=== PATIENT | male | born 1970 | race Caucasian/White ===

== ENCOUNTER 2016-12-07 04:53 | Emergency (ER) | payer MEDICAID, MEDICARE ==
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
[2016-12-07] MEDS ORDERED: Dextrose 5%-0.9% NaCl 1,000 ML IV SCH (05:30)
[2016-12-07] MEDS ORDERED: LORazepam 2 MG/ML MDV IVPUSH ONE (05:42)
[2016-12-07] MEDS ORDERED: Ketorolac 30 MG/ML SDV IVPUSH SCH (05:45)
[2016-12-07] MEDS ORDERED: Sodium Chloride 0.9% 1,000 ML IV SCH (07:15)
[2016-12-07] MEDS ORDERED: Potassium Chloride 20 MEQ Tab.ER PO ONE (08:08)
[2016-12-07] MEDS ORDERED: Potassium Chloride 10 MEQ in Premix Bag 1 BAG IV SCH ×4 (08:15)
--- NOTE | 2016-12-07 11:30 | CR ---
Chest: Portable view of the chest was obtained. Comparison: Previous chest x-ray of 04/24/11. Heart size is normal. Mild tortuosity of the thoracic aorta is seen. Lungs are clear with no acute infiltrates. Bony structures are grossly intact. Impression: 1. Nothing acute is identified on portable chest x-ray. Diagnostic code #1
[2016-12-07 12:03] VITALS: BP 153/90
== END 2016-12-07 11:55 | disposition home or self-care (01) ==
LOC: JD.ED 04:53
DX: E83.42 Hypomagnesemia (principal); E87.6 Hypokalemia; R73.03 Prediabetes; R41.0 Disorientation, unspecified; Z88.5 Allergy status to narcotic agent; Z79.899 Other long term (current) drug therapy
CPT/HCPCS: 36415; 71010; 80053; 80306; 81001; 83036; 83735; 83930; 85025; 86140; 96361; 96365; 96366; 96367; 96375; 99285; A9270; J1885; J2060; J3475; J3480; J7040; J7042; 99284

== ENCOUNTER 2016-12-07 22:45 | Emergency (ER) | payer MEDICAID ==
[2016-12-07 23:04] VITALS: BP 160/107
--- NOTE | 2016-12-08 00:55 | EDM.PDOC ---
ED HPI GENERAL MEDICAL PROBLEM - General Chief Complaint: Behavioral/Psych Stated Complaint: HEAT STROKE Time Seen by Provider: 12/07/16 23:08 Source of Information: Reports: Patient, Family History Limitations: Reports: No Limitations - History of Present Illness INITIAL COMMENTS - FREE TEXT/NARRATIVE: The patient presents with confusion. His says he has not been acting right since yesterday. He came in by ambulance early in the morning of the . He was out all day in the heat at a concert at [employer] and it was 100 and he was cooking. He cleaned up after and he did not get home until 4am. He was seen here and his K was low and his WBC was elevated. The rest looked good. He was concerned that someone gave him some meds. He had a hard time sleeping today. He had some abdominal pain. His brought him back because he is a little confused. He had a large bowel movement while waiting to come back and he feels much better. Onset: Gradual Duration: Day(s): Location: Reports: Abdomen Quality: Reports: Ache Severity: Moderate Improves with: Reports: None Worsens with: Reports: None Context: Reports: Activity Associated Symptoms: Reports: Confusion. Denies: Chest Pain, Fever/Chills, Loss of Appetite, Nausea/Vomiting, Shortness of Breath - Related Data Allergies Allergy/AdvReac Type Severity Reaction Status Date / Time codeine Allergy Drowsiness Verified 12/07/16 05:06 Home Meds: Home Meds Hydrochlorothiazide 25 mg PO DAILY 04/06/15 [History] QUEtiapine [SEROquel] 250 mg PO DAILY 04/06/15 [History] Simvastatin [Zocor] 40 mg PO BEDTIME 07/07/16 [History] Past Medical History Cardiovascular History: Reports: High Cholesterol, Hypertension Neurological History: Reports: Headaches, Chronic Psychiatric History: Reports: Bipolar - Past Surgical History HEENT Surgical History: Reports: Eye Surgery GI Surgical History: Reports: Cholecystectomy Social & Family History - Family History Family Medical History: Noncontributory - Tobacco Use Smoking Status *Q: Never Smoker Second Hand Smoke Exposure: No - Caffeine Use Caffeine Use: Reports: Coffee, Soda - Recreational Drug Use Recreational Drug Use: No - Living Situation & Occupation Living situation: Reports: with Spouse Occupation: Employed ED ROS GENERAL - Review of Systems Review Of Systems: See Below Constitutional: Reports: No Symptoms HEENT: Reports: No Symptoms Respiratory: Reports: No Symptoms Cardiovascular: Reports: No Symptoms Endocrine: Reports: No Symptoms GI/Abdominal: Reports: Abdominal Pain : Reports: No Symptoms Musculoskeletal: Reports: No Symptoms Skin: Reports: No Symptoms ED EXAM, NEURO - Physical Exam Exam: See Below Exam Limited By: No Limitations General Appearance: Alert, No Apparent Distress Ears: Normal External Exam Nose: Normal Inspection Head Exam: Atraumatic, Normocephalic Neck: Normal Inspection Respiratory/Chest: No Respiratory Distress, Lungs Clear, Normal Breath Sounds Cardiovascular: Regular Rate, Rhythm, No Edema, No Murmur GI/Abdominal: Soft, Non-Tender, No Organomegaly Neurological: Alert, No Motor/Sensory Deficits, Oriented x 3 Course - Vital Signs Last Recorded V/S: Last Vital Signs Temp 98.9 F 12/07/16 23:00 Pulse 95 12/07/16 23:00 Resp 16 12/07/16 23:00 BP 160/107 H 12/07/16 23:00 Pulse Ox 97 12/07/16 23:00 - Orders/Labs/Meds Orders: Active Orders 24 hr Category Date Time Status Cardiac Monitoring [RC] . DIRECTED Care 12/07/16 23:24 Active Labs: Laboratory Tests 12/08/16 12/08/16 Range/Units 00:05 00:05 WBC 12.69 H (4.23-9.07) K/mm3 RBC 5.17 (4.63-6.08) M/mm3 Hgb 15.1 (13.7-17.5) gm/L Hct 44.6 (40.1-51.0) % MCV 86.3 (79.0-92.2) fl MCH 29.2 (25.7-32.2) pg MCHC 33.9 (32.2-35.5) g/dl RDW Std Deviation 43.7 (35.1-43.9) fL Plt Count 349 H (163-337) K/mm3 MPV 8.7 L (9.4-12.3) fl Neut % (Auto) 70.0 H (34.0-67.9) % Lymph % (Auto) 14.4 L (21.8-53.1) % [place] % (Auto) 13.9 H (5.3-12.2) % Eos % (Auto) 1.3 (0.8-7.0) Baso % (Auto) 0.2 (0.1-1.2) % Neut # (Auto) 8.89 H (1.78-5.38) K/mm3 Lymph # (Auto) 1.83 (1.32-3.57) K/mm3 [place] # (Auto) 1.77 H (0.30-0.82) K/mm3 Eos # (Auto) 0.16 (0.04-0.54) K/mm3 Baso # (Auto) 0.02 (0.01-0.08) K/mm3 Manual Slide Review Normal smear Sodium 141 (136-145) mEq/L Potassium 3.4 L (3.5-5.1) mEq/L Chloride 104 (98-107) mEq/L Carbon Dioxide 31 (21-32) mEq/L Anion Gap 9.4 (5-15) BUN 13 (7-18) mg/dL Creatinine 1.1 (0.7-1.3) mg/dL Est Cr Clr Drug Dosing TNP Estimated GFR (MDRD) > 60 (>60) mL/min BUN/Creatinine Ratio 11.8 L (14-18) Glucose 154 H (74-106) mg/dL Calcium 9.0 (8.5-10.1) mg/dL Magnesium 2.1 (1.8-2.4) mg/dl Total Bilirubin 0.5 (0.2-1.0) mg/dL AST 41 H (15-37) U/L ALT 46 (16-63) U/L Alkaline Phosphatase 114 (46-116) U/L Total Protein 8.3 H (6.4-8.2) g/dl Albumin 3.8 (3.4-5.0) g/dl Globulin 4.5 gm/dL Albumin/Globulin Ratio 0.8 L (1-2) - Re-Assessments/Exams Free Text/Narrative Re-Assessment/Exam: 12/08/16 01:13 I ordered an labs. 12/08/16 01:21 His K is 3.4. His WBC is coming down. He is upset. He lost a friend the other day. I will give him some ativan her to let him sleep tonight. Departure - Departure Time of Disposition: 01:25 Disposition: Home, Self-Care 01 Condition: Good Clinical Impression: Confusion, Hypokalemia Insomnia Qualifiers: Insomnia type: unspecified Qualified Code(s): G47.00 - Insomnia, unspecified - Discharge Information Referrals: Sriram Zuñiga Jr, MD [Primary Care Provider] - Forms: ED Department Discharge Additional Instructions: Continue taking your medications as prescribed. Follow up with Dr Zuñiga this week. Rest tomorrow. Please return if you are worse. - My Orders Last 24 Hours: My Active Orders 12/07/16 23:24 Cardiac Monitoring [RC] . DIRECTED - Assessment/Plan Last 24 Hours: My Active Orders 12/07/16 23:24 Cardiac Monitoring [RC] . DIRECTED
[2016-12-08] MEDS ORDERED: LORazepam 1 MG Tab PO ONE (01:22)
== END 2016-12-08 01:40 | disposition home or self-care (01) ==
LOC: JD.ED 22:45
DX: E87.6 Hypokalemia (principal); G47.00 Insomnia, unspecified; R41.0 Disorientation, unspecified; E78.00 Pure hypercholesterolemia, unspecified; I10 Essential (primary) hypertension; Z88.5 Allergy status to narcotic agent; Z79.899 Other long term (current) drug therapy; Z90.49 Acquired absence of other specified parts of digestive tract
CPT/HCPCS: 36415; 80053; 83735; 85025; 99285; A9270; 99283

== ENCOUNTER 2017-01-13 06:36 | Day surgery (SDC) | payer MEDICAID ==
--- NOTE | 2017-01-05 22:19 | HP ---
DATE OF ADMISSION: 01/13/2017 Orthopedic outpatient admitting history and physical for surgery. HISTORY OF PRESENT ILLNESS: This is a 46-year-old male, who has been followed in Orthopedic Clinic for severe right knee pain and locking. The patient suffered injury on December 22, 2016, has gone through conservative treatment program and MRI. MRI found the patient to have a tear of the lateral meniscus and significant fibrous adhesions anteriorly. The patient with failed treatment is now being scheduled for the arthroscopic surgery itself. ALLERGIES: Codeine. PAST MEDICAL HISTORY: The patient has been relatively healthy 46-year-old male. He has a history of increased cholesterol and high blood pressure. CURRENT MEDICATIONS: Include: 1. Seroquel XR. 2. Hydrochlorothiazide 25 mg. 3. Simvastatin 40 mg. 4. Tramadol for pain. PAST SURGICAL HISTORY: Positive. He has had previous eye surgery, gallbladder surgery, tonsils. Notes no anesthesia problems or complications. SOCIAL HISTORY: He is a negative smoker. Alcohol, rare occasional. PHYSICAL EXAMINATION: GENERAL: Today reveals a well-developed, well-nourished, 46-year-old male, in moderate distress. HEAD, EYES, EARS, NOSE, AND THROAT: Normocephalic. NECK: Supple. CHEST: Clear. CORONARY: Regular rate. ABDOMEN: Soft. GENITOURINARY: Intact. EXTREMITIES: Right knee reveals severe pain on direct pressure and palpation to lateral joint line and anterior joint. Positive swelling noted laterally. The patient's active extension is -30 degrees, active flexion is 100 degrees. RADIOGRAPHIC STUDIES: MRI evaluation shows a flap tear of anterior horn of lateral meniscus. Plan is the patient to undergo arthroscopic surgery. ASSESSMENT: 1. Lateral meniscus tear, right knee. 2. Fibrous adhesions, right knee. MMODAL /[id number] XAVIER
[~2017-01-13 06:36] MED LIST: Lactated Ringers 1,000 ML IV SCH; Lidocaine 1%/Sod Bicarbonate in NS 8.4% 1 ML Syringe IV PRN; Sodium Chloride 0.9% 10 ML Syringe FLUSH PRN
[2017-01-13] MEDS ORDERED: Propofol 200 MG/20 ML SDV ONE ×3 (06:54→09:27)
[2017-01-13] MEDS ORDERED: Dexamethasone 4 MG/ML SDV ONE (06:54)
[2017-01-13] MEDS ORDERED: Ondansetron 4 MG/2 ML SDV ONE (06:54)
[2017-01-13] MEDS ORDERED: ceFAZolin 1 GM Vial ONE (06:54)
[2017-01-13] MEDS ORDERED: Midazolam 1 MG/ML 2 ML SDV ONE (06:54)
[2017-01-13] MEDS ORDERED: fentaNYL 250 MCG/5 ML SDV ONE (06:55)
[2017-01-13] MEDS ORDERED: Lidocaine 2% with EPINEPHrine 1:200,000 20 ML SDV ONE (06:55)
[2017-01-13] MEDS ORDERED: Lidocaine 1% 2 ML ONE ×2 (06:55→06:56)
[2017-01-13] MEDS ORDERED: Lidocaine 1%/Sod Bicarbonate in NS 8.4% 1 ML Syringe PRN (07:17)
[2017-01-13] MEDS ORDERED: Sodium Chloride 0.9% 50 ML SDV ONE (07:27)
[2017-01-13] MEDS ORDERED: EPINEPHrine 1 MG/ML 30 ML MDV ONE (07:27)
[2017-01-13] MEDS ORDERED: Bupivacaine 0.5%/EPINEPHrine 1:200,000 50 ML MDV ONE (07:32)
[2017-01-13] MEDS ORDERED: Ondansetron 4 MG/2 ML SDV IVPUSH PRN ×2 (07:39→08:32)
[2017-01-13] MEDS ORDERED: traMADol 50 MG Tab PO PRN (07:39)
[2017-01-13] MEDS ORDERED: Ketorolac 30 MG/ML SDV IVPUSH PRN (07:39)
--- NOTE | 2017-01-13 07:40 | PCM.PREANE ---
Preanesthetic Assessment - Anesthesia/Transfusion/Family Hx Anesthesia History: Prior Anesthesia Without Reaction Family History of Anesthesia Reaction: No - Review of Systems General: No Symptoms Pulmonary: No Symptoms Cardiovascular: No Symptoms Gastrointestinal: No Symptoms Neurological: No Symptoms Other: Reports: None - Physical Assessment NPO Status Date: 01/12/17 NPO Status Time: 22:30 O2 Sat by Pulse Oximetry: 95 Respiratory Rate: 16 Vital Signs: Last Vital Signs Temp 36.1 C 01/13/17 06:45 Pulse 91 01/13/17 06:45 Resp 16 01/13/17 06:45 BP 136/90 01/13/17 06:45 Pulse Ox 95 01/13/17 06:45 Height: 1.78 m Weight: 86.183 kg ASA Class: 2 Mental Status: Alert & Oriented x3 Airway Class: Mallampati = 2 Dentition: Reports: Normal Dentition (Permanent plate lower) Thyro-Mental Finger Breadths: 2 Mouth Opening Finger Breadths: 3 Lungs: Clear to Auscultation, Normal Respiratory Effort Cardiovascular: Regular Rate, Regular Rhythm - Lab Values: Laboratory Last Values Potassium 3.4 mEq/L (3.5-5.1) L 01/13/17 07:06 - Allergies Allergies/Adverse Reactions: Allergies Allergy/AdvReac Type Severity Reaction Status Date / Time codeine AdvReac Disorientat Verified 01/13/17 07:16 ion - Acknowledgements Anesthesia Type Planned: General Anesthesia Pt an Appropriate Candidate for the Planned Anesthesia: Yes Alternatives and Risks of Anesthesia Discussed w Pt/Guardian: Yes Pt/Guardian Understands and Agrees with Anesthesia Plan: Yes Additional Comments: Lazy eye on right side. PreAnesthesia Questionnaire HEENT History: Reports: None Cardiovascular History: Reports: High Cholesterol, Hypertension, Other (See Below) Other Cardiovascular History: Hypokalemia Respiratory History: Reports: None Gastrointestinal History: Reports: Cholelithiasis Genitourinary History: Reports: None Musculoskeletal History: Reports: None Neurological History: Reports: None Psychiatric History: Reports: Bipolar Endocrine/Metabolic History: Reports: None Hematologic History: Reports: None Immunologic History: Reports: None Oncologic (Cancer) History: Reports: None Dermatologic History: Reports: None - Infectious Disease History Infectious Disease History: Reports: None - Past Surgical History Head Surgeries/Procedures: Reports: None HEENT Surgical History: Reports: Tonsillectomy, Other (See Below) Other HEENT Surgeries/Procedures: Eye surgery x3 for amblyopia Cardiovascular Surgical History: Reports: None Respiratory Surgical History: Reports: None GI Surgical History: Reports: Cholecystectomy Female Surgical History: Male Surgical History: Reports: None Endocrine Surgical History: Reports: None Neurological Surgical History: Reports: None Musculoskeletal Surgical History: Reports: None Oncologic Surgical History: Reports: None - SUBSTANCE USE Smoking Status *Q: Never Smoker Second Hand Smoke Exposure: No Recreational Drug Use History: No - HOME MEDS Home Medications: Home Meds Hydrochlorothiazide 25 mg PO BEDTIME 04/06/15 [History] QUEtiapine [SEROquel] 350 mg PO BEDTIME 04/06/15 [History] Simvastatin [Zocor] 40 mg PO BEDTIME 07/07/16 [History] Potassium Chloride 20 meq PO BID 01/12/17 [History] traMADol [Ultram] 50 mg PO Q6H 01/12/17 [History] - CURRENT (IN HOUSE) MEDS Current Meds: Current Medications Lactated Ringer's (Ringers, Lactated) 1,000 mls @ 125 mls/hr IV ASDIRECTED KETAN Stop: 01/13/17 23:00 Last Admin: 01/13/17 07:00 Dose: 125 mls/hr Lidocaine/Sodium Bicarbonate (Buffered Lidocaine 1% In Ns 8.4%) 0.25 ml .XX ONETIME PRN PRN Reason: Prior to IV Start Stop: 01/13/17 18:00 Last Admin: 01/13/17 06:59 Dose: 0.25 ml Sodium Chloride (Saline Flush) 10 ml FLUSH ASDIRECTED PRN PRN Reason: Keep Vein Open Stop: 01/13/17 18:00 Discontinued Medications Cefazolin Sodium (Ancef) Confirm Administered Dose 2 gm .ROUTE .STK-MED ONE Stop: 01/13/17 06:55 Dexamethasone (Dexamethasone) Confirm Administered Dose 4 mg .ROUTE .STK-MED ONE Stop: 01/13/17 06:55 Fentanyl (Sublimaze) Confirm Administered Dose 250 mcg .ROUTE .STK-MED ONE Stop: 01/13/17 06:56 Lidocaine HCl (Xylocaine-Mpf 1%) Confirm Administered Dose 2 mls @ as directed .ROUTE .STK-MED ONE Stop: 01/13/17 06:56 Lidocaine HCl (Xylocaine-Mpf 1%) Confirm Administered Dose 2 mls @ as directed .ROUTE .STK-MED ONE Stop: 01/13/17 06:57 Lidocaine/Epinephrine (Xylocaine-Mpf 2%-Epi 1:200,000) Confirm Administered Dose 20 ml .ROUTE .STK-MED ONE Stop: 01/13/17 06:56 Lidocaine/Sodium Bicarbonate (Buffered Lidocaine 1% In Ns 8.4%) 0.25 ml IV ONETIME PRN PRN Reason: Prior to IV Start Midazolam HCl (Versed 1 Mg/Ml) Confirm Administered Dose 2 mg .ROUTE .STK-MED ONE Stop: 01/13/17 06:55 Ondansetron HCl (Zofran) Confirm Administered Dose 4 mg .ROUTE .STK-MED ONE Stop: 01/13/17 06:55 Propofol (Diprivan 20 Ml) Confirm Administered Dose 200 mg .ROUTE .STK-MED ONE Stop: 01/13/17 06:55 Propofol (Diprivan 20 Ml) Confirm Administered Dose 200 mg .ROUTE .STK-MED ONE Stop: 01/13/17 07:09
[2017-01-13] MEDS ORDERED: fentaNYL 100 MCG/2 ML SDV IVPUSH PRN (08:32)
[2017-01-13] MEDS ORDERED: Ketorolac 30 MG/ML SDV ONE (08:40)
[2017-01-13] MEDS ORDERED: Lactated Ringers 1,000 ML ONE ×2 (08:41→09:43)
[2017-01-13] MEDS ORDERED: fentaNYL 100 MCG/2 ML SDV ONE (09:41)
--- NOTE | 2017-01-13 10:02 | PCM.POSTAN ---
POST ANESTHESIA ASSESSMENT - MENTAL STATUS Mental Status: Somnolent - VITAL SIGNS Pulse Rate: 92 SaO2: 96 Resp Rate: 18 Blood Pressure: 134/77 Temperature: 98.1 C - RESPIRATORY Respiratory Status: Respiratory Rate WNL, Airway Patent, O2 Saturation Stable, Supplemental Oxygen - CARDIOVASCULAR CV Status: Pulse Rate WNL, Blood Pressure Stable - GASTROINTESTINAL GI Status: No Symptoms - PAIN Pain Score: 0 - POST OP HYDRATION Hydration Status: Adequate & Stable
[2017-01-13] MEDS ORDERED: traMADol 50 MG Tab PO ONE (11:12)
[2017-01-13 12:26] VITALS: BP 136/71
--- NOTE | 2017-01-14 06:58 | OR ---
DATE OF OPERATION: 01/13/2017 SURGEON: Oscar Thorpe MD PREOPERATIVE DIAGNOSIS: Internal derangement of the right knee. POSTOPERATIVE DIAGNOSIS: 1. Tear, anterior horn of lateral meniscus flap tear. 2. Loose body, right knee. 3. [id number] chondromalacia patellae, lateral central patella. ANESTHESIA: General. OPERATION PERFORMED: 1. Right knee arthroscopic partial lateral meniscectomy, anterior horn. 2. Arthroscopic right knee removal of loose joint fragments x2. 3. Arthroscopic chondroplasty of the patella, right knee, and removal of fibrous adhesions and scarring. DESCRIPTION OF PROCEDURE: The patient was taken to the operating room in a supine position and was placed under a general anesthesia. The right leg was prepped and draped in the standard fashion. The operation began with prepping and draping of the right knee by standard technique. After prepping and draping, the operation proceeded with 2 portals being used, lateral and medial. With the arthroscope introduced through the lateral portal, initial evaluation found an anterior loose bony cartilaginous fragment in the central area and also a flap tear of the anterior horn of the lateral meniscus. This was trimmed out with the shaver. The loose fragment also was able to be brought into the shaver and removed. The decompression of the anterior joint was then carried out removing a significantly large fat pad area that did show hematoma secondary to the patient's injury. Once that was removed, the operation proceeded with inspection. The anterior cruciate ligament was intact. The medial compartment was then inspected, was probed posterior horn anteriorly. No tears could be identified in either the superior or inferior surface of the meniscus. Condylar surfaces of the femur and tibia were intact. In the lateral compartment, the previous flap tear had been removed. The remaining portion of the lateral meniscus was probed from the posterior horn anteriorly. It was found to be thinned out in the anterior third to a very thin wafer-type area, creating a pressure-type problem. This was lightly trimmed out completing a partial lateral meniscectomy only on the anterior rim. Of note though, the chondrocalcinosis of the tibial plateau with softening of the cartilage was identified, there was no breakthrough of the cartilage, and there was only a soft area in the anterior third of the tibia. The operation proceeded with light debridement of that area with the shaver removing the white flecks that were present from the calcium deposits. Then, the operation proceeded with the arthroscope being brought up into the suprapatellar area. The patella was found to have a [id number] chondromalacia patellae with fragmentation of the lateral facet and central area. This was shaved out and smoothed out to a nice clean smooth surface. There was still cartilage remaining on the bony structure, which was firm. Once that was completed, the chondroplasty, the operation proceeded with identification of a second loose body that was floating through, and this was removed with the shaver. The operation then proceeded with final inspection of the anterior and lateral compartments, especially paying careful attention to the lateral and medial recesses and also the posterior joint area. No other loose bodies could be identified after a very slow and meticulous evaluation and swinging the arthroscope back up into the suprapatellar area with suction on the drain area to remove any type of fragments or bringing the fragments up in the suprapatellar area found no further loose fragments floating in the joint. Operation then proceeded with final irrigation of the joint area and final inspection found medial, lateral, and superior suprapatellar compartments intact. Of note, on inspection of the patella, it was shifted laterally, but the patient had minimal to no problems with the patella in the form of symptomatic problems going up and down stairs and that type of thing in the clinic evaluation. The operation then proceeded with final irrigation of the joint area. The skin was then closed with 3-0 Prolene. The patient was placed in a [place] dressing. He tolerated this procedure well and left the operating room in a stable condition to his room for recovery. ESTIMATED BLOOD LOSS: MMODAL /[id number]
== END 2017-01-13 12:10 | disposition home or self-care (01) ==
LOC: JD.SDS 06:36
PROVIDERS: ATTEND Specialist
DX: M23.241 Derangement of anterior horn of lateral meniscus due to old tear or injury, right knee (principal); M23.41 Loose body in knee, right knee; M22.41 Chondromalacia patellae, right knee; F31.9 Bipolar disorder, unspecified; I10 Essential (primary) hypertension; E78.00 Pure hypercholesterolemia, unspecified; Z90.49 Acquired absence of other specified parts of digestive tract; Z88.8 Allergy status to other drugs, medicaments and biological substances; Z98.890 Other specified postprocedural states; Z79.899 Other long term (current) drug therapy
CPT/HCPCS: 29881; 36415; 82945; 84132; 89050; 89060; A9270; J0171; J0690; J1100; J1885; J2250; J2405; J3010; J7120; 01400; J2704

== ENCOUNTER 2019-04-24 16:52 | Emergency (ER) | payer MEDICAID, OTHER ==
[2019-04-24 16:59] VITALS: BP 159/92; PULSE 78
[2019-04-24] MEDS ORDERED: Diphtheria,Pertussis(Acell),Tetanus Vaccine 0.5 ML Syringe IM ONE (17:11)
--- NOTE | 2019-04-24 17:49 | EDM.PDOC ---
ED HPI GENERAL MEDICAL PROBLEM - General Chief Complaint: Laceration Stated Complaint: THUMB LAC Time Seen by Provider: 04/24/19 17:01 Source of Information: Reports: Patient History Limitations: Reports: No Limitations - History of Present Illness INITIAL COMMENTS - FREE TEXT/NARRATIVE: The patient presents with a left thumb laceration. He was cutting potatoes when it happened. His tetanuses it not up to date. He has a 1.5cm curved laceration to the left thumb. Onset: Sudden Duration: Minutes: Location: Reports: Upper Extremity, Left (thumb) Quality: Reports: Sharp Severity: Mild Improves with: Reports: None Worsens with: Reports: None Context: Reports: Trauma (Cutting potatoes) Associated Symptoms: Reports: No Other Symptoms - Related Data Allergies Allergy/AdvReac Type Severity Reaction Status Date / Time codeine AdvReac Disorientat Verified 04/24/19 16:58 ion Home Meds: Home Meds Hydrochlorothiazide 25 mg PO BEDTIME 04/06/15 [History] QUEtiapine [SEROquel] 200 mg PO BEDTIME 04/06/15 [History] Simvastatin [Zocor] 40 mg PO BEDTIME 07/07/16 [History] Potassium Chloride 20 meq PO BID 01/12/17 [History] Past Medical History HEENT History: Reports: Impaired Vision Other HEENT History: Wears glasses Cardiovascular History: Reports: High Cholesterol, Hypertension Other Cardiovascular History: Hypokalemia Respiratory History: Reports: None Gastrointestinal History: Reports: GERD Genitourinary History: Reports: None Musculoskeletal History: Reports: None Neurological History: Reports: Headaches, Chronic Psychiatric History: Reports: Bipolar Endocrine/Metabolic History: Reports: Other (See Below) (Prediabetes dx'd 2016) Hematologic History: Reports: None Immunologic History: Reports: None Oncologic (Cancer) History: Reports: None Dermatologic History: Reports: None - Infectious Disease History Infectious Disease History: Reports: None - Past Surgical History Head Surgeries/Procedures: Reports: None HEENT Surgical History: Reports: Eye Surgery, Oral Surgery, Tonsillectomy Respiratory Surgical History: Reports: None GI Surgical History: Reports: Cholecystectomy Male Surgical History: Reports: None Musculoskeletal Surgical History: Reports: Arthroscopic Knee Oncologic Surgical History: Reports: None Social & Family History - Family History Family Medical History: Noncontributory - Tobacco Use Smoking Status *Q: Never Smoker - Caffeine Use Caffeine Use: Reports: None - Recreational Drug Use Recreational Drug Use: No - Living Situation & Occupation Living situation: Reports: , with Spouse, with Family (Daughter) Occupation: Employed ([employer]) ED ROS GENERAL - Review of Systems Review Of Systems: See Below Constitutional: Reports: No Symptoms HEENT: Reports: No Symptoms Respiratory: Reports: No Symptoms Cardiovascular: Reports: No Symptoms Endocrine: Reports: No Symptoms GI/Abdominal: Reports: No Symptoms : Reports: No Symptoms Musculoskeletal: Reports: Other (1.5cm laceration to the pad of the left thumb) ED EXAM, SKIN/RASH Exam: See Below Exam Limited By: No Limitations General Appearance: Alert, No Apparent Distress Ears: Normal External Exam Nose: Normal Inspection Head: Atraumatic, Normocephalic Neck: Normal Inspection Respiratory/Chest: No Respiratory Distress Extremities: Other (1.5cm curved laceration to the pad of the left thumb. Good sensation and capillary refill distally.) ED SKIN PROCEDURES - Laceration/Wound Repair Left Digit - 1st (Thumb) Appearance: Superficial Distal NVT: Neuro & Vascular Intact, No Tendon Injury Exploration/Debridement/Repair: Wound Explored, In a Bloodless Field, Explored to Base Closed with: Wound Adhesive Lac/Wound length In cm: 1.5 Course - Vital Signs Last Recorded V/S: Last Vital Signs Temp 97.8 F 04/24/19 16:58 Pulse 78 04/24/19 16:58 Resp 18 04/24/19 16:58 BP 159/92 H 04/24/19 16:58 Pulse Ox 97 04/24/19 16:58 - Orders/Labs/Meds Orders: Active Orders 24 hr Category Date Time Status Vaccines to be Administered [RC] PER UNIT ROUTINE Care 04/24/19 17:11 Active Meds: Medications Discontinued Medications Generic Name Dose Route Start Last Admin Trade Name Freq PRN Reason Stop Dose Admin Diphtheria/Tetanus/Acell Pertussis 0.5 ml 04/24/19 17:11 04/24/19 17:15 Adacel IM 04/24/19 17:12 0.5 ml .ONCE ONE Administration - Re-Assessments/Exams Free Text/Narrative Re-Assessment/Exam: 04/24/19 17:45 I updated his tetanus and closed the laceration with some adhesive. Departure - Departure Time of Disposition: 17:50 Disposition: Home, Self-Care 01 Condition: Good Clinical Impression: Laceration of left thumb Qualifiers: Encounter type: initial encounter Damage to nail status: without damage Foreign body presence: without foreign body Qualified Code(s): S61.012A - Laceration without foreign body of left thumb without damage to nail, initial encounter - Discharge Information *PRESCRIPTION DRUG MONITORING PROGRAM REVIEWED*: No *COPY OF PRESCRIPTION DRUG MONITORING REPORT IN PATIENT DARBY: No Referrals: Sriram Zuñiga Jr, MD [Primary Care Provider] - Additional Instructions: You can wash your thumb like normal after the adhesive sets up over the next couple of hours. Look for any signs of infection such as redness, swelling, pain or drainage. If you see any of these signs, please return or see your doctor. You may need oral antibiotics. - My Orders Last 24 Hours: My Active Orders 04/24/19 17:11 Vaccines to be Administered [RC] PER UNIT ROUTINE - Assessment/Plan Last 24 Hours: My Active Orders 04/24/19 17:11 Vaccines to be Administered [RC] PER UNIT ROUTINE
== END 2019-04-24 17:58 | disposition home or self-care (01) ==
LOC: JD.ED 16:52
DX: S61.012A Laceration without foreign body of left thumb without damage to nail, initial encounter (principal); E78.00 Pure hypercholesterolemia, unspecified; I10 Essential (primary) hypertension; F31.9 Bipolar disorder, unspecified; E87.6 Hypokalemia; Z79.899 Other long term (current) drug therapy; Z88.5 Allergy status to narcotic agent; Z23 Encounter for immunization; W26.0XXA Contact with knife, initial encounter; Y93.G1 Activity, food preparation and clean up
CPT/HCPCS: 12001; 90471; 90715; 99282; 99282-25

== ENCOUNTER 2020-01-09 12:53 | Emergency (ER) | payer OTHER ==
[2020-01-09 13:12] VITALS: PULSE 97
[2020-01-09] MEDS ORDERED: Sodium Chloride 0.9% 10 ML Syringe FLUSH PRN (13:31)
[2020-01-09] MEDS ORDERED: Sodium Chloride 0.9% 1,000 ML IV SCH (13:45)
--- NOTE | 2020-01-09 15:48 | EDM.PDOC ---
ED HPI GENERAL MEDICAL PROBLEM - General Chief Complaint: Respiratory Problem Stated Complaint: WEAK (COVID +) Time Seen by Provider: 01/09/20 12:59 Source of Information: Reports: Patient History Limitations: Reports: No Limitations - History of Present Illness INITIAL COMMENTS - FREE TEXT/NARRATIVE: The patient presents with generalized weakness and COVID 19 infection. He has not felt good for a couple of weeks. He got tested on 12/31/19 and he was COVID 19 positive. He has been weak and not eating much. He thinks he got this at a [place] he works at. 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 He has no more cough. He has not been running fevers. He has no shortness of breath. His taste and smell are coming back. He has no chest pain. Onset: Gradual Duration: Week(s): Severity: Moderate Improves with: Reports: None Worsens with: Reports: None Associated Symptoms: Reports: Loss of Appetite. Denies: Chest Pain, Cough, Fever/Chills, Headaches, Nausea/Vomiting, Shortness of Breath - Related Data Allergies Allergy/AdvReac Type Severity Reaction Status Date / Time codeine AdvReac Disorientat Verified 01/09/20 13:04 ion Home Meds: Home Meds Hydrochlorothiazide 25 mg PO BEDTIME 04/06/15 [History] QUEtiapine [SEROquel] 200 mg PO BEDTIME 04/06/15 [History] Simvastatin [Zocor] 40 mg PO BEDTIME 07/07/16 [History] Potassium Chloride 20 meq PO BID 01/12/17 [History] Past Medical History HEENT History: Reports: Impaired Vision Other HEENT History: Wears glasses Cardiovascular History: Reports: High Cholesterol, Hypertension Other Cardiovascular History: Hypokalemia Respiratory History: Reports: None Gastrointestinal History: Reports: GERD Genitourinary History: Reports: None Musculoskeletal History: Reports: None Neurological History: Reports: Headaches, Chronic Psychiatric History: Reports: Bipolar Endocrine/Metabolic History: Reports: Other (See Below) Hematologic History: Reports: None Immunologic History: Reports: None Oncologic (Cancer) History: Reports: None Dermatologic History: Reports: None - Infectious Disease History Infectious Disease History: Reports: Novel Coronavirus - Past Surgical History Head Surgeries/Procedures: Reports: None HEENT Surgical History: Reports: Eye Surgery, Oral Surgery, Tonsillectomy Respiratory Surgical History: Reports: None GI Surgical History: Reports: Cholecystectomy Male Surgical History: Reports: None Musculoskeletal Surgical History: Reports: Arthroscopic Knee Oncologic Surgical History: Reports: None Social & Family History - Family History Family Medical History: Noncontributory - Tobacco Use Smoking Status *Q: Never Smoker Second Hand Smoke Exposure: No - Caffeine Use Caffeine Use: Reports: Coffee - Recreational Drug Use Recreational Drug Use: No - Living Situation & Occupation Living situation: Reports: , with Spouse, with Family (Daughter) Occupation: Employed ([employer]) ED ROS GENERAL - Review of Systems Review Of Systems: See Below Constitutional: Reports: Malaise, Weakness, Fatigue. Denies: Fever, Chills HEENT: Reports: No Symptoms Respiratory: Reports: No Symptoms Cardiovascular: Reports: No Symptoms Endocrine: Reports: No Symptoms GI/Abdominal: Reports: Decreased Appetite. Denies: Abdominal Pain, Nausea, Vomiting : Reports: No Symptoms Musculoskeletal: Reports: No Symptoms ED EXAM, GENERAL - Physical Exam Exam: See Below Exam Limited By: No Limitations General Appearance: Alert, No Apparent Distress Ears: Normal External Exam Nose: Normal Inspection Head: Atraumatic, Normocephalic Neck: Normal Inspection Respiratory/Chest: No Respiratory Distress, Lungs Clear, Normal Breath Sounds Cardiovascular: Regular Rate, Rhythm, No Edema, No Murmur GI/Abdominal: Soft, Non-Tender, No Organomegaly, No Mass Back Exam: Normal Inspection Extremities: Normal Inspection Neurological: Alert, Oriented, No Motor/Sensory Deficits Course - Vital Signs Last Recorded V/S: Last Vital Signs Temp 96.9 F 01/09/20 13:02 Pulse 97 01/09/20 13:02 Resp 16 01/09/20 13:02 BP 137/97 H 01/09/20 13:02 Pulse Ox 94 L 01/09/20 13:02 Orthostatic Blood Pressure [ 113/88 Standing] Orthostatic Blood Pressure [ 126/85 Supine] - Orders/Labs/Meds Orders: Active Orders 24 hr Category Date Time Status Cardiac Monitoring [RC] . DIRECTED Care 01/09/20 13:31 Active Peripheral IV Care [RC] . DIRECTED Care 01/09/20 13:32 Active Sodium Chloride 0.9% [Normal Saline] 1,000 ml Med 01/09/20 13:45 Active IV .BOLUS Sodium Chloride 0.9% [Saline Flush] Med 01/09/20 13:31 Active 10 ml FLUSH ASDIRECTED PRN Peripheral IV Insertion Adult [OM.PC] Stat Oth 01/09/20 13:31 Ordered Medication Orders Sodium Chloride (Normal Saline) 1,000 mls @ 1,000 mls/hr IV .BOLUS KETAN Last Admin: 01/09/20 13:50 Dose: 1,000 mls/hr Documented by: MAU Sodium Chloride (Saline Flush) 10 ml FLUSH ASDIRECTED PRN PRN Reason: Keep Vein Open Last Admin: 01/09/20 14:11 Dose: 10 ml Documented by: MAU Labs: Laboratory Tests 01/09/20 01/09/20 Range/Units 13:50 13:50 WBC 7.33 (4.23-9.07) K/mm3 RBC 5.69 (4.63-6.08) M/mm3 Hgb 16.0 D (13.7-17.5) gm/dl Hct 48.8 (40.1-51.0) % MCV 85.8 (79.0-92.2) fl MCH 28.1 (25.7-32.2) pg MCHC 32.8 (32.2-35.5) g/dl RDW Std Deviation 40.8 (35.1-43.9) fL Plt Count 507 H D (163-337) K/mm3 MPV 8.8 L (9.4-12.3) fl Neut % (Auto) 64.1 (34.0-67.9) % Lymph % (Auto) 21.7 L (21.8-53.1) % [place] % (Auto) 12.1 (5.3-12.2) % Eos % (Auto) 0.8 (0.8-7.0) Baso % (Auto) 1.0 (0.1-1.2) % Neut # (Auto) 4.70 (1.78-5.38) K/mm3 Lymph # (Auto) 1.59 (1.32-3.57) K/mm3 [place] # (Auto) 0.89 H (0.30-0.82) K/mm3 Eos # (Auto) 0.06 (0.04-0.54) K/mm3 Baso # (Auto) 0.07 (0.01-0.08) K/mm3 Manual Slide Review Abnormal smear Sodium 141 (136-145) mEq/L Potassium 3.5 (3.5-5.1) mEq/L Chloride 102 (98-107) mEq/L Carbon Dioxide 29 (21-32) mEq/L Anion Gap 13.5 (5-15) BUN 20 H (7-18) mg/dL Creatinine 0.9 (0.7-1.3) mg/dL Est Cr Clr Drug Dosing 108.07 mL/min Estimated GFR (MDRD) > 60 (>60) mL/min BUN/Creatinine Ratio 22.2 H (14-18) Glucose 115 H (74-106) mg/dL Calcium 9.4 (8.5-10.1) mg/dL Magnesium 1.9 (1.8-2.4) mg/dl Total Bilirubin 0.3 (0.2-1.0) mg/dL AST 45 H (15-37) U/L ALT 74 H (16-63) U/L Alkaline Phosphatase 118 H (46-116) U/L Total Protein 8.6 H (6.4-8.2) g/dl Albumin 3.1 L (3.4-5.0) g/dl Globulin 5.5 gm/dL Albumin/Globulin Ratio 0.6 L (1-2) Meds: Medications Generic Name Dose Route Start Last Admin Trade Name Freq PRN Reason Stop Dose Admin Sodium Chloride 1,000 mls @ 1,000 mls/hr 01/09/20 13:45 01/09/20 13:50 Normal Saline IV 1,000 mls/hr .BOLUS KETAN Administration Sodium Chloride 10 ml 01/09/20 13:31 01/09/20 14:11 Saline Flush FLUSH 10 ml ASDIRECTED PRN Administration Keep Vein Open - Re-Assessments/Exams Free Text/Narrative Re-Assessment/Exam: 01/09/20 15:35 I ordered an IV NS 500ml bolus and labs. His CBC looks good. His AST was elevated at 45. His ALT was elevated at 74. His alk phos was elevated at 118. He feels better. I will discharge him home. Departure - Departure Time of Disposition: 15:50 Disposition: Home, Self-Care 01 Condition: Good Clinical Impression: COVID-19, Dehydration - Discharge Information *PRESCRIPTION DRUG MONITORING PROGRAM REVIEWED*: Not Applicable *COPY OF PRESCRIPTION DRUG MONITORING REPORT IN PATIENT DARBY: Not Applicable Referrals: Sriram Zuñiga Jr, MD [Primary Care Provider] - 1 Week Additional Instructions: Drink plenty of fluids. Take motrin or tylenol for pain or fever. Get plenty of rest. Isolate yourself. Please return if you are worse. Sepsis Event Note (ED) - Evaluation Sepsis Screening Result: No Definite Risk - Focused Exam Vital Signs: Vital Signs Temp Pulse Resp BP Pulse Ox 01/09/20 13:02 96.9 F 97 16 137/97 H 94 L - My Orders Last 24 Hours: My Active Orders 01/09/20 13:31 Cardiac Monitoring [RC] . DIRECTED Sodium Chloride 0.9% [Saline Flush] 10 ml FLUSH ASDIRECTED PRN Peripheral IV Insertion Adult [OM.PC] Stat 01/09/20 13:32 Peripheral IV Care [RC] . DIRECTED 01/09/20 13:45 Sodium Chloride 0.9% [Normal Saline] 1,000 ml IV .BOLUS - Assessment/Plan Last 24 Hours: My Active Orders 01/09/20 13:31 Cardiac Monitoring [RC] . DIRECTED Sodium Chloride 0.9% [Saline Flush] 10 ml FLUSH ASDIRECTED PRN Peripheral IV Insertion Adult [OM.PC] Stat 01/09/20 13:32 Peripheral IV Care [RC] . DIRECTED 01/09/20 13:45 Sodium Chloride 0.9% [Normal Saline] 1,000 ml IV .BOLUS
[2020-01-09 16:52] VITALS: BP 124/80
== END 2020-01-09 16:15 | disposition home or self-care (01) ==
LOC: JD.ED 12:53
DX: U07.1 COVID-19 (principal); E86.0 Dehydration; I10 Essential (primary) hypertension; F31.9 Bipolar disorder, unspecified; Z88.5 Allergy status to narcotic agent
CPT/HCPCS: 36415; 80053; 83735; 85025; 99284; J7030; 99283

== ENCOUNTER 2020-01-10 07:24 | Inpatient (IN) | payer OTHER ==
[2020-01-10] MEDS ORDERED: Sodium Chloride 0.9% 10 ML Syringe FLUSH PRN ×2 (07:56→08:47)
[2020-01-10] MEDS ORDERED: Ondansetron 4 MG/2 ML SDV IVPUSH ONE (07:56)
[2020-01-10] MEDS ORDERED: Sodium Chloride 0.9% 1,000 ML IV SCH (08:00)
--- NOTE | 2020-01-10 08:03 | EDM.PDOC ---
ED HPI GENERAL MEDICAL PROBLEM - General Chief Complaint: General Stated Complaint: [facility] Time Seen by Provider: 01/10/20 07:45 Source of Information: Reports: Patient, EMS History Limitations: Reports: No Limitations - History of Present Illness INITIAL COMMENTS - FREE TEXT/NARRATIVE: The patient presents by [facility] for generalized weakness. The ruby ent was diagnosed with COVID 19 about 10 days ago. He has no fever or chills, cough, or diarrhea. He does have fatigue and generalized weakness. He has no appetite and he has vomited a few times when drinking fluids. He has his sense of smell and taste back. He has no chest pain or shortness of breath. He has no numbness. Onset: Gradual Duration: Week(s): Severity: Severe Improves with: Reports: None Worsens with: Reports: None Associated Symptoms: Reports: Loss of Appetite, Malaise, Nausea/Vomiting. Denies: Chest Pain, Cough, Fever/Chills, Headaches, Shortness of Breath - Related Data Allergies Allergy/AdvReac Type Severity Reaction Status Date / Time codeine AdvReac Disorientat Verified 01/10/20 07:32 ion Home Meds: Home Meds Hydrochlorothiazide 25 mg PO BEDTIME 04/06/15 [History] QUEtiapine [SEROquel] 200 mg PO BEDTIME 04/06/15 [History] Simvastatin [Zocor] 40 mg PO BEDTIME 07/07/16 [History] Potassium Chloride 20 meq PO DAILY 01/12/17 [History] Past Medical History HEENT History: Reports: Impaired Vision Other HEENT History: Wears glasses Cardiovascular History: Reports: High Cholesterol, Hypertension Other Cardiovascular History: Hypokalemia Respiratory History: Reports: None Gastrointestinal History: Reports: GERD Genitourinary History: Reports: None Musculoskeletal History: Reports: None Neurological History: Reports: Headaches, Chronic Psychiatric History: Reports: Bipolar Endocrine/Metabolic History: Reports: Other (See Below) Hematologic History: Reports: None Immunologic History: Reports: None Oncologic (Cancer) History: Reports: None Dermatologic History: Reports: None - Infectious Disease History Infectious Disease History: Reports: Novel Coronavirus - Past Surgical History Head Surgeries/Procedures: Reports: None HEENT Surgical History: Reports: Eye Surgery, Oral Surgery, Tonsillectomy Respiratory Surgical History: Reports: None GI Surgical History: Reports: Cholecystectomy Male Surgical History: Reports: None Musculoskeletal Surgical History: Reports: Arthroscopic Knee Oncologic Surgical History: Reports: None Social & Family History - Family History Family Medical History: Noncontributory - Tobacco Use Smoking Status *Q: Never Smoker - Caffeine Use Caffeine Use: Reports: Coffee - Living Situation & Occupation Living situation: Reports: , with Spouse, with Family (Daughter) Occupation: Employed ([employer] at [employer]) ED ROS GENERAL - Review of Systems Review Of Systems: See Below Constitutional: Reports: Malaise, Weakness, Fatigue. Denies: Fever, Chills HEENT: Reports: No Symptoms Respiratory: Reports: No Symptoms Cardiovascular: Reports: No Symptoms Endocrine: Reports: Fatigue GI/Abdominal: Reports: Anorexia, Nausea, Vomiting. Denies: Abdominal Pain, Diarrhea : Reports: No Symptoms Musculoskeletal: Reports: No Symptoms ED EXAM, GENERAL - Physical Exam Exam: See Below Exam Limited By: No Limitations General Appearance: Alert, No Apparent Distress Ears: Normal External Exam Nose: Normal Inspection Head: Atraumatic, Normocephalic Neck: Normal Inspection Respiratory/Chest: No Respiratory Distress, Lungs Clear, Normal Breath Sounds Cardiovascular: Regular Rate, Rhythm, No Edema, No Murmur GI/Abdominal: Soft, Non-Tender, No Organomegaly, No Mass Extremities: Normal Inspection Neurological: Alert, Oriented, No Motor/Sensory Deficits Course - Vital Signs Last Recorded V/S: Last Vital Signs Temp 97.9 F 01/10/20 07:30 Pulse 94 01/10/20 07:30 Resp 20 01/10/20 07:30 BP 140/94 H 01/10/20 07:30 Pulse Ox 94 L 01/10/20 07:30 - Orders/Labs/Meds Orders: Active Orders 24 hr Category Date Time Status Patient Status [ADT] Routine ADT 01/10/20 11:52 Active Cardiac Monitoring [RC] . DIRECTED Care 01/10/20 07:56 Active EKG 12 Lead [EKG Documentation Completion] [RC] STAT Care 01/10/20 07:46 Act rick Peripheral IV Care [RC] . DIRECTED Care 01/10/20 07:57 Active CULTURE BLOOD [BC] Stat Lab 01/10/20 11:00 Received CULTURE BLOOD [BC] Stat Lab 01/10/20 11:10 Received Lactated Ringers [Ringers, Lactated] 1,000 ml Med 01/10/20 11:00 Active IV ASDIRECTED Potassium Chloride [KCl 10 MEQ in Water 100 ML] 10 meq Med 01/10/20 10:45 Active Premix Bag 1 bag IV Q1H Sodium Chloride 0.9% [Normal Saline] 1,000 ml Med 01/10/20 08:00 Active IV .BOLUS Sodium Chloride 0.9% [Normal Saline] 100 ml Med 01/10/20 09:00 Active IV ASDIRECTED Sodium Chloride 0.9% [Saline Flush] Med 01/10/20 07:56 Active 10 ml FLUSH ASDIRECTED PRN Sodium Chloride 0.9% [Saline Flush] Med 01/10/20 08:47 Active 10 ml FLUSH ONETIME PRN Blood Culture x2 Reflex Set [OM.PC] Stat Ot 01/10/20 10:42 Ordered ED Antiemetic Medication Reflex [OM.PC] Stat Ot 01/10/20 07:57 Ordered Peripheral IV Insertion Adult [OM.PC] Stat Ot 01/10/20 07:56 Ordered Medication Orders Sodium Chloride (Normal Saline) 1,000 mls @ 1,000 mls/hr IV .BOLUS [facility] Last Admin: 01/10/20 08:38 Dose: 1,000 mls/hr Documented by: SALVATORE Sodium Chloride (Normal Saline) 100 mls @ 60 mls/hr IV ASDIRECTED [facility] Last Admin: 01/10/20 09:27 Dose: 60 mls/hr Documented by: VICKIE Potassium Chloride 10 meq/ (Premix) 100 mls @ 100 mls/hr IV Q1H KETAN Stop: 01/10/20 14:44 Last Admin: 01/10/20 10:59 Dose: 100 mls/hr Documented by: MARIOLA Lactated Ringer's (Ringers, Lactated) 1,000 mls @ 50 mls/hr IV ASDIRECTED KETAN Last Admin: 01/10/20 10:59 Dose: 50 mls/hr Documented by: MARIOLA Sodium Chloride (Saline Flush) 10 ml FLUSH ASDIRECTED PRN PRN Reason: Keep Vein Open Last Admin: 01/10/20 08:38 Dose: 10 ml Documented by: SALVATORE Sodium Chloride (Saline Flush) 10 ml FLUSH ONETIME PRN PRN Reason: Keep Vein Open Last Admin: 01/10/20 09:27 Dose: 10 ml Documented by: VICKIE Labs: Laboratory Tests 01/10/20 01/10/20 01/10/20 Range/Units 07:40 07:40 07:40 WBC 6.85 (4.23-9.07) K/mm3 RBC 5.43 (4.63-6.08) M/mm3 Hgb 15.2 (13.7-17.5) gm/dl Hct 46.9 (40.1-51.0) % MCV 86.4 (79.0-92.2) fl MCH 28.0 (25.7-32.2) pg MCHC 32.4 (32.2-35.5) g/dl RDW Std Deviation 42.0 (35.1-43.9) fL Plt Count 500 H (163-337) K/mm3 MPV 8.8 L (9.4-12.3) fl Neut % (Auto) 61.2 (34.0-67.9) % Lymph % (Auto) 23.4 (21.8-53.1) % [place] % (Auto) 12.7 H (5.3-12.2) % Eos % (Auto) 1.2 (0.8-7.0) Baso % (Auto) 1.2 (0.1-1.2) % Neut # (Auto) 4.20 (1.78-5.38) K/mm3 Lymph # (Auto) 1.60 (1.32-3.57) K/mm3 [place] # (Auto) 0.87 H (0.30-0.82) K/mm3 Eos # (Auto) 0.08 (0.04-0.54) K/mm3 Baso # (Auto) 0.08 (0.01-0.08) K/mm3 Manual Slide Review Abnormal smear D-Dimer, Quantitative 0.98 H (0.19-0.50) mg/L ABG pH (7.35-7.45) ABG pCO2 (35.0-45.0) mmHg ABG pO2 (80.0-100.0) mmHg ABG HCO3 (22.0-26.0) meq/L ABG O2 Saturation (96.0-97.0) % ABG Base Excess (-2-2.0) [place] Test FiO2 (21.00-100.00) % Sodium 138 (136-145) mEq/L Potassium 3.0 L (3.5-5.1) mEq/L Chloride 101 (98-107) mEq/L Carbon Dioxide 28 (21-32) mEq/L Anion Gap 12.0 (5-15) BUN 15 (7-18) mg/dL Creatinine 1.1 (0.7-1.3) mg/dL Est Cr Clr Drug Dosing 88.42 mL/min Estimated GFR (MDRD) > 60 (>60) mL/min BUN/Creatinine Ratio 13.6 L (14-18) Glucose 132 H (74-106) mg/dL Lactic Acid (0.4-2.0) mmol/L Calcium 8.9 (8.5-10.1) mg/dL Phosphorus (2.6-4.7) mg/dL Magnesium (1.8-2.4) mg/dl Ferritin (26-388) ng/ml Total Bilirubin 0.4 (0.2-1.0) mg/dL AST 33 (15-37) U/L ALT 67 H (16-63) U/L Alkaline Phosphatase 107 (46-116) U/L Lactate Dehydrogenase 207 (85-227) U/L Total Protein 7.9 (6.4-8.2) g/dl Albumin 2.9 L (3.4-5.0) g/dl Globulin 5.0 gm/dL Albumin/Globulin Ratio 0.6 L (1-2) Lipase 122 (73-393) U/L 01/10/20 01/10/20 01/10/20 Range/Units 07:40 07:40 10:41 WBC (4.23-9.07) K/mm3 RBC (4.63-6.08) M/mm3 Hgb (13.7-17.5) gm/dl Hct (40.1-51.0) % MCV (79.0-92.2) fl MCH (25.7-32.2) pg MCHC (32.2-35.5) g/dl RDW Std Deviation (35.1-43.9) fL Plt Count (163-337) K/mm3 MPV (9.4-12.3) fl Neut % (Auto) (34.0-67.9) % Lymph % (Auto) (21.8-53.1) % [place] % (Auto) (5.3-12.2) % Eos % (Auto) (0.8-7.0) Baso % (Auto) (0.1-1.2) % Neut # (Auto) (1.78-5.38) K/mm3 Lymph # (Auto) (1.32-3.57) K/mm3 [place] # (Auto) (0.30-0.82) K/mm3 Eos # (Auto) (0.04-0.54) K/mm3 Baso # (Auto) (0.01-0.08) K/mm3 Manual Slide Review D-Dimer, Quantitative (0.19-0.50) mg/L ABG pH 7.43 (7.35-7.45) ABG pCO2 38.8 (35.0-45.0) mmHg ABG pO2 67.0 L (80.0-100.0) mmHg ABG HCO3 25.5 (22.0-26.0) meq/L ABG O2 Saturation 92.9 L (96.0-97.0) % ABG Base Excess 1.7 (-2-2.0) [place] Test Positive FiO2 0.00 L (21.00-100.00) % Sodium (136-145) mEq/L Potassium (3.5-5.1) mEq/L Chloride (98-107) mEq/L Carbon Dioxide (21-32) mEq/L Anion Gap (5-15) BUN (7-18) mg/dL Creatinine (0.7-1.3) mg/dL Est Cr Clr Drug Dosing mL/min Estimated GFR (MDRD) (>60) mL/min BUN/Creatinine Ratio (14-18) Glucose (74-106) mg/dL Lactic Acid (0.4-2.0) mmol/L Calcium (8.5-10.1) mg/dL Phosphorus 2.1 L (2.6-4.7) mg/dL Magnesium 1.8 (1.8-2.4) mg/dl Ferritin 481 H (26-388) ng/ml Total Bilirubin (0.2-1.0) mg/dL AST (15-37) U/L ALT (16-63) U/L Alkaline Phosphatase (46-116) U/L Lactate Dehydrogenase (85-227) U/L Total Protein (6.4-8.2) g/dl Albumin (3.4-5.0) g/dl Globulin gm/dL Albumin/Globulin Ratio (1-2) Lipase (73-393) U/L 01/10/20 Range/Units 11:00 WBC (4.23-9.07) K/mm3 RBC (4.63-6.08) M/mm3 Hgb (13.7-17.5) gm/dl Hct (40.1-51.0) % MCV (79.0-92.2) fl MCH (25.7-32.2) pg MCHC (32.2-35.5) g/dl RDW Std Deviation (35.1-43.9) fL Plt Count (163-337) K/mm3 MPV (9.4-12.3) fl Neut % (Auto) (34.0-67.9) % Lymph % (Auto) (21.8-53.1) % [place] % (Auto) (5.3-12.2) % Eos % (Auto) (0.8-7.0) Baso % (Auto) (0.1-1.2) % Neut # (Auto) (1.78-5.38) K/mm3 Lymph # (Auto) (1.32-3.57) K/mm3 [place] # (Auto) (0.30-0.82) K/mm3 Eos # (Auto) (0.04-0.54) K/mm3 Baso # (Auto) (0.01-0.08) K/mm3 Manual Slide Review D-Dimer, Quantitative (0.19-0.50) mg/L ABG pH (7.35-7.45) ABG pCO2 (35.0-45.0) mmHg ABG pO2 (80.0-100.0) mmHg ABG HCO3 (22.0-26.0) meq/L ABG O2 Saturation (96.0-97.0) % ABG Base Excess (-2-2.0) [place] Test FiO2 (21.00-100.00) % Sodium (136-145) mEq/L Potassium (3.5-5.1) mEq/L Chloride (98-107) mEq/L Carbon Dioxide (21-32) mEq/L Anion Gap (5-15) BUN (7-18) mg/dL Creatinine (0.7-1.3) mg/dL Est Cr Clr Drug Dosing mL/min Estimated GFR (MDRD) (>60) mL/min BUN/Creatinine Ratio (14-18) Glucose (74-106) mg/dL Lactic Acid 1.1 (0.4-2.0) mmol/L Calcium (8.5-10.1) mg/dL Phosphorus (2.6-4.7) mg/dL Magnesium (1.8-2.4) mg/dl Ferritin (26-388) ng/ml Total Bilirubin (0.2-1.0) mg/dL AST (15-37) U/L ALT (16-63) U/L Alkaline Phosphatase (46-116) U/L Lactate Dehydrogenase (85-227) U/L Total Protein (6.4-8.2) g/dl Albumin (3.4-5.0) g/dl Globulin gm/dL Albumin/Globulin Ratio (1-2) Lipase (73-393) U/L Meds: Medications Generic Name Dose Route Start Last Admin Trade Name Freq PRN Reason Stop Dose Admin Sodium Chloride 1,000 mls @ 1,000 mls/hr 01/10/20 08:00 01/10/20 08:38 Normal Saline IV 1,000 mls/hr .BOLUS KETAN Administration Sodium Chloride 100 mls @ 60 mls/hr 01/10/20 09:00 01/10/20 09:27 Normal Saline IV 60 mls/hr ASDIRECTED KETAN Administration Potassium Chloride 10 meq/ 100 mls @ 100 mls/hr 01/10/20 10:45 01/10/20 10:59 Premix IV 01/10/20 14:44 100 mls/hr Q1H KETAN Administration Lactated Ringer's 1,000 mls @ 50 mls/hr 01/10/20 11:00 01/10/20 10:59 Ringers, Lactated IV 50 mls/hr ASDIRECTED KETAN Administration Sodium Chloride 10 ml 01/10/20 07:56 01/10/20 08:38 Saline Flush FLUSH 10 ml ASDIRECTED PRN Administration Keep Vein Open Sodium Chloride 10 ml 01/10/20 08:47 01/10/20 09:27 Saline Flush FLUSH 10 ml ONETIME PRN Administration Keep Vein Open Discontinued Medications Generic Name Dose Route Start Last Admin Trade Name Leilani PRN Reason Stop Dose Admin Iopamidol 100 ml 01/10/20 08:47 01/10/20 09:27 Isovue-370 (76%) IVPUSH 01/10/20 08:48 100 ml ONETIME ONE Administration Ondansetron HCl 4 mg 01/10/20 07:56 01/10/20 08:38 Zofran IVPUSH 01/10/20 07:57 4 mg ONETIME ONE Administration - Re-Assessments/Exams Free Text/Narrative Re-Assessment/Exam: 01/10/20 08:02 I ordered an IV NS 1L bolus, EKG, CXR, zofran 4mg IV and labs. 01/10/20 10:27 His WBC is normal. His platelets are elevated at 500. His D-dimer is elevated at 0.98. His K is low at 3. His glucose is elevated at 132. His ferritin is elevated at 481. His ALT is elevated at 67. His lipase is negative. His CXR shows patchy areas of increased density in both sides of the chest. Findings could represent pneumonia either bacterial or viral in etiology. No additional abnormality is appreciated. 01/10/20 10:[address] order a CT angio of his chest. His CT shows patchy parenchymal change throughout both sides of the chest, worse within the right lung base. Findings presumably represent diffuse pneumonia which can be seen with diffuse bacterial or viral etiology. Slightly numerous mediastinal lymph nodes most likely relating to the lung process. No findings of pulmonary embolism. He still is feeling poorly. I do not think he is doing well to go home. It does not sound like he is taking care of himself at home. I talked with Dr Dennis and she will come see the patient. I did ordered lactic acid and ABG. I also ordered some potassium through the IV. 01/10/20 11:54 The hospitalist service will admit the patient. Departure - Departure Time of Disposition: 11:55 Disposition: Admitted As Inpatient 68 Condition: Poor Clinical Impression: COVID-19, Generalized weakness, Hypokalemia Pneumonia Qualifiers: Pneumonia type: due to unspecified organism Laterality: bilateral Lung location: unspecified part of lung Qualified Code(s): J18.9 - Pneumonia, unspecified organism - Discharge Information Referrals: Sriram Zuñiga Jr, MD [Primary Care Provider] - Forms: ED Department Discharge Sepsis Event Note (ED) - Evaluation Sepsis Screening Result: No Definite Risk - Focused Exam Vital Signs: Vital Signs Temp Pulse Resp BP Pulse Ox 01/10/20 07:30 97.9 F 94 20 140/94 H 94 L - My Orders Last 24 Hours: My Active Orders 01/10/20 07:46 EKG 12 Lead [EKG Documentation Completion] [RC] STAT 01/10/20 07:56 Cardiac Monitoring [RC] . DIRECTED Sodium Chloride 0.9% [Saline Flush] 10 ml FLUSH ASDIRECTED PRN Peripheral IV Insertion Adult [OM.PC] Stat 01/10/20 07:57 Peripheral IV Care [RC] . DIRECTED ED Antiemetic Medication Reflex [OM.PC] Stat 01/10/20 08:00 Sodium Chloride 0.9% [Normal Saline] 1,000 ml IV .BOLUS 01/10/20 08:47 Sodium Chloride 0.9% [Saline Flush] 10 ml FLUSH ONETIME PRN 01/10/20 09:00 Sodium Chloride 0.9% [Normal Saline] 100 ml IV ASDIRECTED 01/10/20 10:42 Blood Culture x2 Reflex Set [OM.PC] Stat 01/10/20 10:45 Potassium Chloride [KCl 10 MEQ in Water 100 ML] 10 meq Premix Bag 1 bag IV Q1H 01/10/20 11:00 CULTURE BLOOD [BC] Stat Lactated Ringers [Ringers, Lactated] 1,000 ml IV ASDIRECTED 01/10/20 11:10 CULTURE BLOOD [BC] Stat 01/10/20 11:52 Patient Status [ADT] Routine - Assessment/Plan Last 24 Hours: My Active Orders 01/10/20 07:46 EKG 12 Lead [EKG Documentation Completion] [RC] STAT 01/10/20 07:56 Cardiac Monitoring [RC] . DIRECTED Sodium Chloride 0.9% [Saline Flush] 10 ml FLUSH ASDIRECTED PRN Peripheral IV Insertion Adult [OM.PC] Stat 01/10/20 07:57 Peripheral IV Care [RC] . DIRECTED ED Antiemetic Medication Reflex [OM.PC] Stat 01/10/20 08:00 Sodium Chloride 0.9% [Normal Saline] 1,000 ml IV .BOLUS 01/10/20 08:47 Sodium Chloride 0.9% [Saline Flush] 10 ml FLUSH ONETIME PRN 01/10/20 09:00 Sodium Chloride 0.9% [Normal Saline] 100 ml IV ASDIRECTED 01/10/20 10:42 Blood Culture x2 Reflex Set [OM.PC] Stat 01/10/20 10:45 Potassium Chloride [KCl 10 MEQ in Water 100 ML] 10 meq Premix Bag 1 bag IV Q1H 01/10/20 11:00 CULTURE BLOOD [BC] Stat Lactated Ringers [Ringers, Lactated] 1,000 ml IV ASDIRECTED 01/10/20 11:10 CULTURE BLOOD [BC] Stat 01/10/20 11:52 Patient Status [ADT] Routine
--- NOTE | 2020-01-10 08:36 | CR ---
Chest: Portable view of the chest was obtained. Comparison: Previous chest x-ray of 12/07/16. Patchy areas of increased density are seen on both sides of the chest. Heart size and mediastinum are normal. Bony structures are grossly intact. Impression: 1. Patchy areas of increased density in both sides of the chest. Findings could represent pneumonia either bacterial or viral in etiology. 2. No additional abnormality is appreciated. Diagnostic code #3 This report was dictated in MDT
[2020-01-10] MEDS ORDERED: Iopamidol 755 Mg/ML 100 ML Bottle IVPUSH ONE (08:47)
[2020-01-10] MEDS ORDERED: Sodium Chloride 0.9% 100 ML IV SCH (09:00)
--- NOTE | 2020-01-10 10:28 | CT ---
CT chest Technique: Multiple axial sections through the chest were obtained. Intravenous contrast was utilized. Study performed as a pulmonary angiogram protocol. Comparison: Prior chest x-ray performed earlier on the same day (7:53 AM). Findings: Pulmonary arteries are fairly well opacified. No filling defects are seen to indicate pulmonary embolism. Slightly prominent lymph nodes are noted within the mediastinum which are more numerous than usually seen. This is most likely reactive from the lung process. Aorta shows no aneurysm or dissection. No pericardial thickening is seen. Visualized upper abdominal structures show nothing acute. Findings: Patchy areas of increased density within both sides of the chest involving both upper and lower lungs. Findings are most prominent within both lung bases and most prominent on the right side. Bone window settings were reviewed which shows no acute osseous finding. Impression: 1. Patchy parenchymal change throughout both sides of the chest, worse within the right lung base. Findings presumably represent diffuse pneumonia which can be seen with diffuse bacterial or viral etiology. 2. Slightly numerous mediastinal lymph nodes most likely relating to the lung process. 3. No findings of pulmonary embolism. Diagnostic code #5 This report was dictated in MDT
[2020-01-10] MEDS: Lactated Ringers 1,000 ML IV SCH (10:59)
[2020-01-10] MEDS: Potassium Chloride 10 MEQ in Premix Bag 1 BAG IV SCH ×4 (10:59→14:31)
[2020-01-10] MEDS ORDERED: Acetaminophen/HYDROcodone 325-5 MG Tab PO PRN (12:19)
[2020-01-10] MEDS ORDERED: Acetaminophen 325 MG Tab PO PRN (12:19)
[2020-01-10] MEDS ORDERED: diphenhydrAMINE 50 MG/ML SDV IVPUSH PRN (12:19)
--- NOTE | 2020-01-10 12:40 | PCM.HP.2 ---
H&P History of Present Illness - General Date of Service: 01/10/20 Admit Problem/Dx: Admission Diagnosis/Problem Admission Diagnosis/Problem Bilateral Pneumonia Source of Information: Patient History Limitations: Reports: No Limitations - History of Present Illness Initial Comments - Free Text/Narative: The patient is a 49 yo male, PCP Dr. Sriram Zuñiga, with a past medical history of hypertension and bipolar disorder, presented to the ED by EMS today after experiencing increased lethargy, weakness, and cough. The patient reports being tested for COVID at [facility] on 12/30 and he has been isolating at home. Yesterday, he came to the ED after feeling very dehydrated. Received NS 500ml bolus and felt some better so went home on isolation, instructed to take ibuprofen/tylenol for fevers. Today, he has increased cough, with green sputum production. He has been unable to sleep due to anxious feeling and his whole body aching. He has not had energy to do anything other than lay at home. He does not remember when last BM was but has had constipation. He denies chest pain. Denies feeling short of breath. Denies dizziness or headache. He has had intermittent chills. Has not tried medications at home. - Related Data Allergies/Adverse Reactions: Allergies Allergy/AdvReac Type Severity Reaction Status Date / Time codeine AdvReac Disorientat Verified 01/10/20 07:32 ion Home Medications: Home Meds Hydrochlorothiazide 25 mg PO BEDTIME 04/06/15 [History] QUEtiapine [SEROquel] 200 mg PO BEDTIME 04/06/15 [History] Simvastatin [Zocor] 40 mg PO BEDTIME 07/07/16 [History] Potassium Chloride 20 meq PO DAILY 01/12/17 [History] Past Medical History HEENT History: Reports: Impaired Vision Other HEENT History: Wears glasses Cardiovascular History: Reports: High Cholesterol, Hypertension Other Cardiovascular History: Hypokalemia Respiratory History: Reports: None Gastrointestinal History: Reports: GERD Genitourinary History: Reports: None Musculoskeletal History: Reports: None Neurological History: Reports: Headaches, Chronic Psychiatric History: Reports: Bipolar Endocrine/Metabolic History: Reports: Other (See Below) Hematologic History: Reports: None Immunologic History: Reports: None Oncologic (Cancer) History: Reports: None Dermatologic History: Reports: None - Infectious Disease History Infectious Disease History: Reports: Novel Coronavirus - Past Surgical History Head Surgeries/Procedures: Reports: None HEENT Surgical History: Reports: Eye Surgery, Oral Surgery, Tonsillectomy Respiratory Surgical History: Reports: None GI Surgical History: Reports: Cholecystectomy Male Surgical History: Reports: None Musculoskeletal Surgical History: Reports: Arthroscopic Knee Oncologic Surgical History: Reports: None Social & Family History - Family History Family Medical History: Noncontributory - Tobacco Use Smoking Status *Q: Never Smoker - Caffeine Use Caffeine Use: Reports: Coffee - Living Situation & Occupation Living situation: Reports: , with Spouse, with Family (Daughter) Occupation: Employed ([employer]) H&P Review of Systems - Review of Systems: Review Of Systems: See Below General: Reports: Fever, Chills, Weakness, Fatigue, Diaphoresis, Decreased Appetite HEENT: Denies: Ear Pain, Headaches, Sore Throat Pulmonary: Reports: Cough, Sputum (green). Denies: Shortness of Breath, Wheezing Cardiovascular: Reports: Lightheadedness. Denies: Chest Pain, Palpitations Gastrointestinal: Reports: Constipation, Decreased Appetite. Denies: Abdominal Pain, Bloody Stool, Diarrhea Genitourinary: Denies: Dysuria, Frequency, Burning Musculoskeletal: Reports: Other (aches all over body) Skin: Reports: No Symptoms Psychiatric: Reports: Depression, Mood Lability Neurological: Denies: Dizziness, Headache Hematologic/Lymphatic: Denies: Easy Bleeding, Easy Bruising Exam - Exam Exam: See Below - Vital Signs Vital Signs: Last Vital Signs Temp 97.9 F 01/10/20 07:30 Pulse 94 01/10/20 07:30 Resp 20 01/10/20 07:30 BP 140/94 H 01/10/20 07:30 Pulse Ox 94 L 01/10/20 07:30 Weight: 180 lb - Exam General: Alert, Oriented, Cooperative, Other (somber mood) HEENT: Conjunctiva Clear, EOMI, Hearing Intact, Other (oral mucosa dry ) Neck: Supple. No: Lymphadenopathy Lungs: Clear to Auscultation, Other (Patient with poor chest expansion). No: Rub, Wheezing Cardiovascular: Regular Rate, Regular Rhythm. No: Systolic Murmur, Diastolic Murmur, Rubs GI/Abdominal Exam: Soft, Non-Tender, No Distention, Other (sluggish bowel sounds) Extremities: Normal Inspection, Non-Tender, No Pedal Edema, Normal Capillary Refill Skin: Warm, Dry, Intact Neuro Extensive - Mental Status: Alert, Oriented x3 Neuro Extensive - Motor, Sensory, Reflexes: Other (Patient able to raise eyebrows, no facial droop, no EOMs intact, no focal neural deficits) - Patient Data Lab Results Last 24 hrs: In the ED, vital signs are w/ temp 97.9, pulse 94, bp 140/94, pulse ox 94% on RA. WBC normal. platelet count 500. sodium 138, potassium 3.0, Cr 1.1, glucose 132, lactic acid 1.1, phos 2.1. d-dimer 0.98, ferritin 481, LDH 207. The patient was given KCl 40meq, NS 1L bolus. Chest x-ray showed diffuse patchy infiltrate, worse on R than L. CTA chest showed diffuse parenchymal changes R lower lobe worse than L, diffuse pneumonia. Result Diagrams: 01/10/20 07:40 01/10/20 07:40 Sepsis Event Note - Evaluation Sepsis Screening Result: No Definite Risk - Problem List (1) Bilateral pneumonia SNOMED Code(s): 584115152 ICD Code: J18.9 - PNEUMONIA, UNSPECIFIED ORGANISM Status: Acute Priority: High Current Visit: Yes (2) COVID-19 SNOMED Code(s): 999499222 ICD Code: U07.1 - COVID-19 Status: Acute Current Visit: Yes (3) Generalized weakness SNOMED Code(s): 36390360 ICD Code: R53.1 - WEAKNESS Status: Acute Current Visit: Yes (4) Hypokalemia SNOMED Code(s): 33356459 ICD Code: E87.6 - HYPOKALEMIA Status: Acute Current Visit: Yes (5) Hypophosphatemia SNOMED Code(s): 9730061 ICD Code: E83.39 - OTHER DISORDERS OF PHOSPHORUS METABOLISM Status: Acute Current Visit: Yes (6) Constipation SNOMED Code(s): 64779390 ICD Code: K59.00 - CONSTIPATION, UNSPECIFIED Status: Acute Current Visit: Yes (7) Hypertension SNOMED Code(s): 84419805 ICD Code: I10 - ESSENTIAL (PRIMARY) HYPERTENSION Status: Chronic Current Visit: Yes (8) Thrombocytosis SNOMED Code(s): 3049561 ICD Code: D47.3 - ESSENTIAL (HEMORRHAGIC) THROMBOCYTHEMIA Status: Acute Current Visit: Yes (9) Hyperlipidemia SNOMED Code(s): 78085051 ICD Code: E78.5 - HYPERLIPIDEMIA, UNSPECIFIED Status: Chronic Current Visit: Yes Problem List Initiated/Reviewed/Updated: Yes Assessment/Plan Comment:: Bilateral Pneumonia COVID-19 infection Weakness Positive COVID 19 test on 12/30 and has been self isolating Progressively more weak, decreased appetite, Cough with green sputum production started today X-ray and CTA with bilateral pneumonia D-dimer 0.98, CRP pending, ferritin 481, LDH normal PLAN - Fluids with LR at 50ml/hr - Incentive spirometer - Does not meet recommendations for remdesivir, tocilizumab or dexamethasone - Close respiratory monitoring, if pulse ox <92% will start supplemental O2 - Lovenox 40mg subcu q24h - Trend labs Thrombocytosis Platelet count 500 Possibly due to underlying infection PLAN - Patient started on anticoagulation and aspirin 81mg daily. - Recheck platelet count in the AM. Hypokalemia Potassium 3.0 Received KCl 40meq IV in ED PLAN - Giving another KCl 80meq x1 now for total of 120meq - Recheck levels in AM - Holding home hydrochlorothiazide Hypophosphatemia Phosphorus is 2.1 PLAN - Giving neutra-phos 500mg oral once. - Recheck levels in AM Hypertension Home medication of HCTZ 25mg oral qpm BP 140/94 PLAN -Holding HCTZ as phosphorus and potassium are low -Hydralazine PRN Hyperlipidemia Patient not currently on medications but states he has history PLAN Will check lipid profile in AM and initiate treatment at discharge if needed. Constipation Patient cannot remember when last BM was. A few days at least. PLAN - Docusate/senna 2 tabs BID, hold for diarrhea Bipolar disorder Patient appears to be depressed now. He is followed by psychiatrist in [facility] and says he has regular follow-ups. PLAN - Continue Seroquel 200mg oral qpm. 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. PCP Sriram Zuñiga. Psychiatrist is Dr. Bryant. CODE STATUS: FULL CODE DISPOSITION The patient is admitted to med/surg floor. Will keep close monitoring on respiratory status and give supplemental O2 as needed. Replenishing electrolyt es. Will recheck labs in AM. Pt will remain in house probably 2 midnights. - Mortality Measure Prognosis:: Good
[2020-01-10] MEDS ORDERED: Phosphorus #1 250 MG Tab PO ONE (13:00)
[2020-01-10] MEDS ORDERED: Potassium Chloride 20 MEQ Tab.ER PO SCH (13:00)
[2020-01-10] MEDS ORDERED: hydrALAZINE 20 MG/ML SDV IVPUSH PRN (13:24)
[2020-01-10] MEDS: Ondansetron 4 MG/2 ML SDV IVPUSH PRN ×3 (14:35→21:28)
[2020-01-10] MEDS: Aspirin 81 MG Tab.Chew PO SCH (14:40)
[2020-01-10] MEDS: Enoxaparin 40 MG/0.4 ML Syringe SUBCUT SCH (14:41)
[2020-01-10] MEDS: QUEtiapine 100 MG Tab PO SCH (21:30)
[2020-01-11] MEDS: Ondansetron 4 MG/2 ML SDV IVPUSH PRN (02:48)
[2020-01-11] MEDS: Lactated Ringers 1,000 ML IV SCH (02:49)
[2020-01-11 07:28] LABS: HEMOGLOBIN A1C 6.6 % (4.50-6.20)
[2020-01-11] MEDS ORDERED: Potassium Chloride 20 MEQ Tab.ER PO ONE (08:16)
[2020-01-11] MEDS: Aspirin 81 MG Tab.Chew PO SCH (08:23)
[2020-01-11] MEDS: Potassium Chloride 10 MEQ in Premix Bag 1 BAG IV SCH ×4 (08:38→15:31)
[2020-01-11] MEDS: Magnesium Sulfate/Water 2 GM in Premix Bag 1 BAG IV SCH ×2 (11:29→14:11)
[2020-01-11] MEDS: Enoxaparin 40 MG/0.4 ML Syringe SUBCUT SCH (11:29)
[2020-01-11] MEDS ORDERED: REMDESIVIR (EUA) 100 MG in Sodium Chloride 0.9% 100 ML IV SCH (12:30)
--- NOTE | 2020-01-11 17:10 | PCM.PN ---
- General Info Date of Service: 01/11/20 Admission Dx/Problem (Free Text): Admission Diagnosis/Problem Admission Diagnosis/Problem Bilateral Pneumonia Subjective Update: The patient was seen by me at bedside, case also discussed with patient's on the phone. The patient is today without nausea or vomiting. He did not sleep well due to vomiting through the night. He denies shortness of breath. Has been using incentive spirometer and is reaching [address]. He denies chest pain. Urinating fine. He had very small BM yesterday but still feels constipated. Denies dizziness, lightheadedness. - Patient Data Vitals - Most Recent: Last Vital Signs Temp 99.9 F 01/10/20 21:27 Pulse 91 01/11/20 11:39 Resp 14 01/11/20 11:39 BP 122/67 01/11/20 11:39 Pulse Ox 93 L 01/11/20 11:39 Weight - Most Recent: 174 lb - Exam General: Alert, Oriented, Cooperative, Other (Stays on topic today) HEENT: Pupils Equal, EOMI, Other (right eye with exotropia) Neck: Supple Lungs: Clear to Auscultation, Normal Respiratory Effort Cardiovascular: Regular Rate, Regular Rhythm, No Murmurs GI/Abdominal Exam: Soft, Tender (mildly tender to deep palpation of LLQ, pressure with palpation of suprapubic region), Other (hypoactive bowel sounds) Extremities: Normal Inspection, Normal Range of Motion, Normal Capillary Refill Skin: Warm, Dry, Intact Neurological: No New Focal Deficit Psy/Mental Status: Alert, Normal Affect Sepsis Event Note - Evaluation Sepsis Screening Result: No Definite Risk - Focused Exam Vital Signs: Vital Signs Pulse Resp BP Pulse Ox 01/11/20 11:39 91 14 122/67 93 L 01/11/20 08:18 91 14 121/75 96 - Problem List & Annotations (1) Bilateral pneumonia SNOMED Code(s): 426225676 Code(s): J18.9 - PNEUMONIA, UNSPECIFIED ORGANISM Status: Acute Priority: High Current Visit: Yes (2) COVID-19 SNOMED Code(s): 315520106 Code(s): U07.1 - COVID-19 Status: Acute Current Visit: Yes (3) Generalized weakness SNOMED Code(s): 06574157 Code(s): R53.1 - WEAKNESS Status: Acute Current Visit: Yes (4) Hypokalemia SNOMED Code(s): 74197181 Code(s): E87.6 - HYPOKALEMIA Status: Acute Current Visit: Yes (5) Hypophosphatemia SNOMED Code(s): 0384456 Code(s): E83.39 - OTHER DISORDERS OF PHOSPHORUS METABOLISM Status: Acute Current Visit: Yes (6) Constipation SNOMED Code(s): 06697867 Code(s): K59.00 - CONSTIPATION, UNSPECIFIED Status: Acute Current Visit: Yes (7) Hypertension SNOMED Code(s): 52799585 Code(s): I10 - ESSENTIAL (PRIMARY) HYPERTENSION Status: Chronic Current Visit: Yes (8) Thrombocytosis SNOMED Code(s): 9895064 Code(s): D47.3 - ESSENTIAL (HEMORRHAGIC) THROMBOCYTHEMIA Status: Acute Current Visit: Yes (9) Dyslipidemia SNOMED Code(s): 912881353 Code(s): E78.5 - HYPERLIPIDEMIA, UNSPECIFIED Status: Acute Current Visit: Yes (10) Diabetes mellitus type 2 in nonobese SNOMED Code(s): 068982606 Code(s): E11.9 - TYPE 2 DIABETES MELLITUS WITHOUT COMPLICATIONS Status: Acute Current Visit: Yes - Problem List Review Problem List Initiated/Reviewed/Updated: Yes - Assessment Assessment:: 01/10/2020 Positive COVID 19 test on 12/30 and has been self isolating Progressively more weak, decreased appetite, Cough with green sputum production started today X-ray and CTA with bilateral pneumonia D-dimer 0.98, CRP pending, ferritin 481, LDH normal Platelet count 500- Possibly due to underlying infection Potassium 3.0 - Received KCl 40meq IV in ED Phosphorus is 2.1 Home medication of HCTZ 25mg oral qpm BP 140/94 Patient cannot remember when last BM was. A few days at least. Patient appears to be depressed now- has not been taking medications per his He is followed by psychiatrist in [facility] and says he has regular follow-ups. PLAN - Fluids with LR at 50ml/hr - Incentive spirometer - Does not meet recommendations for remdesivir, tocilizumab or dexamethasone - Close respiratory monitoring, if pulse ox <92% will start supplemental O2 - Lovenox 40mg subcu q24h - Patient started on anticoagulation and aspirin 81mg daily. - Recheck platelet count in the AM. - Giving another KCl 80meq x1 now for total of 120meq - Holding home hydrochlorothiazide - Giving neutra-phos 500mg oral once. - Holding HCTZ as phosphorus and potassium are low - Hydralazine PRN - Will check lipid profile in AM and initiate treatment at discharge if needed. - Docusate/senna 2 tabs BID, hold for diarrhea - Continue Seroquel 200mg oral qpm. 01/11/2020 Pt eating and drinking well Low grade temperature of 99.9 last night This AM temp 97.6 RR, pulse, BP controlled WBC 6.63, platelets 467 down from 500, H/H 14.3/44 Potassium 3.1 from 3.0 yesterday after receiving KCl 120 meq HgbA1c 6.6% Newly diagnosed diabetes Ferritin 472 down from 481, d-dimer 0.78 down from 0.98 Triglycerides 164, cholesterol 128, LDL 71, HDL 28 Patient is less depressed appearing and anxious compared to yesterday. - Plan Plan:: Bilateral Pneumonia COVID-19 infection Weakness - Will obtain positive COVID 19 test from clinic - Stop IV fluids - Incentive spirometer - Does not meet recommendations for remdesivir, tocilizumab or dexamethasone - Close respiratory monitoring, if pulse ox <92% will start supplemental O2 - Lovenox 40mg subcu q24h - Trend labs Thrombocytosis - Lovenox 40mg subcu q24h and aspirin 81mg daily. - Recheck platelet count in the AM. Hypophosphatemia - resolved Hypokalemia - Giving another KCl 80meq meq oral and 40meq IV - Recheck levels in AM - Holding home hydrochlorothiazide Dyslipidemia - Discussed change in diet Diabetes mellitus type II - Hgb A1c 6.6% - On discharge will start on metformin low dose - Will discuss carb regulated diet Hypertension -Holding HCTZ -Hydralazine PRN Constipation - Dulcolax suppository today. Docusate/senna 2 tabs BID Bipolar disorder - Continue Seroquel 200mg oral qpm. PROPHYLAXIS: GI - Not indicated DVT - lovenox 40mg subcu q24h CODE STATUS: FULL CODE DISPOSITION The patient will remain admitted for bilateral pneumonia, COVID 19, hypokalemia with weakness, or further management. Expected length of stay between 1-2 days.
[2020-01-11] MEDS ORDERED: Bisacodyl 10 MG Supp RECTAL ONE (17:20)
[2020-01-11] MEDS: QUEtiapine 100 MG Tab PO SCH (20:15)
[2020-01-12] MEDS ORDERED: Phosphorus #1 250 MG Tab PO ONE ×2 (07:30→10:15)
--- NOTE | 2020-01-12 07:56 | PCM.DCSUM1 ---
Discharge Summary - Hospital Course HPI Initial Comments: The patient is a 49 yo male, PCP Dr. Sriram Zuñiga, with a past medical history of hypertension and bipolar disorder, presented to the ED by EMS today after experiencing increased lethargy, weakness, and cough. The patient reports being tested for COVID at [facility] on 12/30 and he has been isolating at home. Yesterday, he came to the ED after feeling very dehydrated. Received NS 500ml bolus and felt some better so went home on isolation, instructed to take ibuprofen/tylenol for fevers. Today, he has increased cough, with green sputum production. He has been unable to sleep due to anxious feeling and his whole body aching. He has not had energy to do anything other than lay at home. He does not remember when last BM was but has had constipation. He denies chest pain. Denies feeling short of breath. Denies dizziness or headache. He has had intermittent chills. Has not tried medications at home. - Discharge Data Discharge Date: 01/12/20 Discharge Disposition: Home, Self-Care 01 Condition: Good - Referral to Home Health Primary Care Physician: Sriram Zuñiga Jr, MD - Discharge Diagnosis/Problem(s) (1) Bilateral pneumonia SNOMED Code(s): 168034971 ICD Code: J18.9 - PNEUMONIA, UNSPECIFIED ORGANISM Status: Acute Priority: High Current Visit: Yes (2) COVID-19 SNOMED Code(s): 253079240 ICD Code: U07.1 - COVID-19 Status: Acute Current Visit: Yes (3) Generalized weakness SNOMED Code(s): 85204670 ICD Code: R53.1 - WEAKNESS Status: Acute Current Visit: Yes (4) Hypokalemia SNOMED Code(s): 25404261 ICD Code: E87.6 - HYPOKALEMIA Status: Acute Current Visit: Yes (5) Hypophosphatemia SNOMED Code(s): 6238622 ICD Code: E83.39 - OTHER DISORDERS OF PHOSPHORUS METABOLISM Status: Acute Current Visit: Yes (6) Constipation SNOMED Code(s): 22019181 ICD Code: K59.00 - CONSTIPATION, UNSPECIFIED Status: Acute Current Visit: Yes (7) Hypertension SNOMED Code(s): 88718986 ICD Code: I10 - ESSENTIAL (PRIMARY) HYPERTENSION Status: Chronic Current Visit: Yes (8) Thrombocytosis SNOMED Code(s): 8717651 ICD Code: D47.3 - ESSENTIAL (HEMORRHAGIC) THROMBOCYTHEMIA Status: Acute Current Visit: Yes (9) Dyslipidemia SNOMED Code(s): 961097380 ICD Code: E78.5 - HYPERLIPIDEMIA, UNSPECIFIED Status: Acute Current Visit: Yes (10) Diabetes mellitus type 2 in nonobese SNOMED Code(s): 082802148 ICD Code: E11.9 - TYPE 2 DIABETES MELLITUS WITHOUT COMPLICATIONS Status: Acute Current Visit: Yes (11) Bipolar disorder SNOMED Code(s): 03547913 ICD Code: F31.9 - BIPOLAR DISORDER, UNSPECIFIED Status: Acute Current Visit: Yes - Patient Summary/Data Recommended Follow-up Testing/Procedures: Follow up with Dr. Bryant within 2 weeks. Hospital Course: 01/10/2020 Positive COVID 19 test on 12/30 and has been self isolating Progressively more weak, decreased appetite, Cough with green sputum production started today X-ray and CTA with bilateral pneumonia D-dimer 0.98, CRP pending, ferritin 481, LDH normal Platelet count 500- Possibly due to underlying infection Potassium 3.0 - Received KCl 40meq IV in ED Phosphorus is 2.1 Home medication of HCTZ 25mg oral qpm BP 140/94 Patient cannot remember when last BM was. A few days at least. Patient appears to be depressed now- has not been taking medications per his He is followed by psychiatrist in [facility] and says he has regular follow-ups. PLAN - Fluids with LR at 50ml/hr - Incentive spirometer - Does not meet recommendations for remdesivir, tocilizumab or dexamethasone - Close respiratory monitoring, if pulse ox <92% will start supplemental O2 - Lovenox 40mg subcu q24h - Patient started on anticoagulation and aspirin 81mg daily. - Recheck platelet count in the AM. - Giving another KCl 80meq x1 now for total of 120meq - Holding home hydrochlorothiazide - Giving neutra-phos 500mg oral once. - Holding HCTZ as phosphorus and potassium are low - Hydralazine PRN - Will check lipid profile in AM and initiate treatment at discharge if needed. - Docusate/senna 2 tabs BID, hold for diarrhea - Continue Seroquel 200mg oral qpm. 01/11/2020 Pt eating and drinking well Low grade temperature of 99.9 last night This AM temp 97.6 RR, pulse, BP controlled WBC 6.63, platelets 467 down from 500, H/H 14.3/44 Potassium 3.1 from 3.0 yesterday after receiving KCl 120 meq HgbA1c 6.6% Newly diagnosed diabetes Ferritin 472 down from 481, d-dimer 0.78 down from 0.98 Triglycerides 164, cholesterol 128, LDL 71, HDL 28 Patient is less depressed appearing and anxious compared to yesterday. - Patient Instructions Diet: Diabetic Diet Activity: As Tolerated Notify Provider of: Fever, Increased Pain, Nausea and/or Vomiting Other/Special Instructions: You were found with diabetes type II and should take metformin 500mg oral twice a day. Stop taking hydrochlorothiazide as your electrolytes were low. Take Seroquel 200mg oral at bedtimes. Follow up with PCP within 2 weeks to discuss medication changes. Follow up with Dr. Bryant within 2 weeks for checkup. - Discharge Plan Prescriptions/Med Rec: Aspirin 81 mg PO DAILY #30 tab metFORMIN [Glucophage] 500 mg PO BIDMEALS 30 Days #30 tab QUEtiapine [SEROquel] 200 mg PO BEDTIME 14 Days tablet Home Medications: Home Meds Simvastatin [Zocor] 40 mg PO BEDTIME 07/07/16 [History] Potassium Chloride 20 meq PO DAILY 01/12/17 [History] Aspirin 81 mg PO DAILY #30 tab 01/12/20 [Rx] QUEtiapine [SEROquel] 200 mg PO BEDTIME 14 Days tablet 01/12/20 [Rx] metFORMIN [Glucophage] 500 mg PO BIDMEALS 30 Days #30 tab 01/12/20 [Rx] Forms: Return to Work/Inpatient JDN, ED Department Discharge Referrals: Sriram Zuñiga Jr, MD [Primary Care Provider] - - Discharge Summary/Plan Comment DC Time >30 min.: Yes Discharge Summary/Plan Comment: Discharge patient today. - May return to work on 01/18/2020. - Follow up with health department. - Educated patient on self isolation. - Discharge on aspirin 81mg for 1 month. - STOP taking HCTZ as electrolytes were low and blood pressure controlled. - Start taking metformin 500mg oral twice a day for diabetes. - Follow diabetic diet. - General Info Date of Service: 01/12/20 Admission Dx/Problem (Free Text: Admission Diagnosis/Problem Admission Diagnosis/Problem Bilateral Pneumonia, COVID 19 Subjective Update: The patient was seen by me at bedside. The patient is today without nausea or vomiting. Slept better throughout the night. He denies shortness of breath. Has been using incentive spirometer and is reaching [address]. He denies chest pain. Urinating fine. He had large bm last night. Overall, he is feeling stronger. Denies dizziness, chest pain, lightheadedness. - Patient Data Vitals - Most Recent: Last Vital Signs Temp 98.1 F 01/12/20 05:08 Pulse 75 01/12/20 05:08 Resp 18 01/12/20 05:08 BP 114/84 01/12/20 05:08 Pulse Ox 96 01/12/20 05:08 Weight - Most Recent: 170 lb 1.6 oz Lab Results - Last 24 hrs: Laboratory Results - last 24 hr 01/11/20 01/11/20 01/11/20 Range/Units 05:25 05:25 05:25 WBC (4.23-9.07) K/mm3 RBC (4.63-6.08) M/mm3 Hgb (13.7-17.5) gm/dl Hct (40.1-51.0) % MCV (79.0-92.2) fl MCH (25.7-32.2) pg MCHC (32.2-35.5) g/dl RDW Std Deviation (35.1-43.9) fL Plt Count (163-337) K/mm3 MPV (9.4-12.3) fl Neut % (Auto) (34.0-67.9) % Lymph % (Auto) (21.8-53.1) % [place] % (Auto) (5.3-12.2) % Eos % (Auto) (0.8-7.0) Baso % (Auto) (0.1-1.2) % Neut # (Auto) (1.78-5.38) K/mm3 Lymph # (Auto) (1.32-3.57) K/mm3 [place] # (Auto) (0.30-0.82) K/mm3 Eos # (Auto) (0.04-0.54) K/mm3 Baso # (Auto) (0.01-0.08) K/mm3 Manual Slide Review Abnormal smear PT (9.7-12.0) SECONDS INR APTT (22-31) SECONDS D-Dimer, Quantitative 0.78 H (0.19-0.50) mg/L Puncture Site ABG pH (7.35-7.45) ABG pCO2 (35.0-45.0) mmHg ABG pO2 (80.0-100.0) mmHg ABG HCO3 (22.0-26.0) meq/L ABG O2 Saturation (96.0-97.0) % ABG Base Excess (-2-2.0) Victor Hugo Test A-a Gradient mmHg O2 Delivery Device FiO2 (21.00-100.00) % Sodium (136-145) mEq/L Potassium (3.5-5.1) mEq/L Chloride (98-107) mEq/L Carbon Dioxide (21-32) mEq/L Anion Gap (5-15) BUN (7-18) mg/dL Creatinine (0.7-1.3) mg/dL Est Cr Clr Drug Dosing mL/min Estimated GFR (MDRD) (>60) mL/min BUN/Creatinine Ratio (14-18) Glucose (74-106) mg/dL Calcium (8.5-10.1) mg/dL Phosphorus (2.6-4.7) mg/dL Magnesium (1.8-2.4) mg/dl Ferritin 472 H (26-388) ng/ml Total Bilirubin (0.2-1.0) mg/dL AST (15-37) U/L ALT (16-63) U/L Alkaline Phosphatase (46-116) U/L Lactate Dehydrogenase (85-227) U/L Creatine Kinase (39-308) U/L Troponin I (0.00-0.056) ng/mL Total Protein (6.4-8.2) g/dl Albumin (3.4-5.0) g/dl Globulin gm/dL Albumin/Globulin Ratio (1-2) 01/11/20 01/11/20 01/12/20 Range/Units 05:25 08:11 05:58 WBC 5.94 (4.23-9.07) K/mm3 RBC 5.46 (4.63-6.08) M/mm3 Hgb 15.2 (13.7-17.5) gm/dl Hct 47.8 (40.1-51.0) % MCV 87.5 (79.0-92.2) fl MCH 27.8 (25.7-32.2) pg MCHC 31.8 L (32.2-35.5) g/dl RDW Std Deviation 42.8 (35.1-43.9) fL Plt Count 442 H (163-337) K/mm3 MPV 8.7 L (9.4-12.3) fl Neut % (Auto) 51.2 (34.0-67.9) % Lymph % (Auto) 27.9 (21.8-53.1) % [place] % (Auto) 17.7 H (5.3-12.2) % Eos % (Auto) 2.2 (0.8-7.0) Baso % (Auto) 0.8 (0.1-1.2) % Neut # (Auto) 3.04 (1.78-5.38) K/mm3 Lymph # (Auto) 1.66 (1.32-3.57) K/mm3 [place] # (Auto) 1.05 H (0.30-0.82) K/mm3 Eos # (Auto) 0.13 (0.04-0.54) K/mm3 Baso # (Auto) 0.05 (0.01-0.08) K/mm3 Manual Slide Review Abnormal smear PT 11.5 (9.7-12.0) SECONDS INR 1.08 APTT (22-31) SECONDS D-Dimer, Quantitative (0.19-0.50) mg/L Puncture Site Rt radial ABG pH 7.41 (7.35-7.45) ABG pCO2 42.7 (35.0-45.0) mmHg ABG pO2 74.0 L (80.0-100.0) mmHg ABG HCO3 26.8 H (22.0-26.0) meq/L ABG O2 Saturation 93.9 L (96.0-97.0) % ABG Base Excess 2.4 H (-2-2.0) Victor Hugo Test Positive A-a Gradient 22 mmHg O2 Delivery Device Room air FiO2 21.00 (21.00-100.00) % Sodium (136-145) mEq/L Potassium (3.5-5.1) mEq/L Chloride (98-107) mEq/L Carbon Dioxide (21-32) mEq/L Anion Gap (5-15) BUN (7-18) mg/dL Creatinine (0.7-1.3) mg/dL Est Cr Clr Drug Dosing mL/min Estimated GFR (MDRD) (>60) mL/min BUN/Creatinine Ratio (14-18) Glucose (74-106) mg/dL Calcium (8.5-10.1) mg/dL Phosphorus (2.6-4.7) mg/dL Magnesium (1.8-2.4) mg/dl Ferritin (26-388) ng/ml Total Bilirubin (0.2-1.0) mg/dL AST (15-37) U/L ALT (16-63) U/L Alkaline Phosphatase (46-116) U/L Lactate Dehydrogenase (85-227) U/L Creatine Kinase (39-308) U/L Troponin I (0.00-0.056) ng/mL Total Protein (6.4-8.2) g/dl Albumin (3.4-5.0) g/dl Globulin gm/dL Albumin/Globulin Ratio (1-2) 01/12/20 01/12/20 Range/Units 05:58 05:58 WBC (4.23-9.07) K/mm3 RBC (4.63-6.08) M/mm3 Hgb (13.7-17.5) gm/dl Hct (40.1-51.0) % MCV (79.0-92.2) fl MCH (25.7-32.2) pg MCHC (32.2-35.5) g/dl RDW Std Deviation (35.1-43.9) fL Plt Count (163-337) K/mm3 MPV (9.4-12.3) fl Neut % (Auto) (34.0-67.9) % Lymph % (Auto) (21.8-53.1) % [place] % (Auto) (5.3-12.2) % Eos % (Auto) (0.8-7.0) Baso % (Auto) (0.1-1.2) % Neut # (Auto) (1.78-5.38) K/mm3 Lymph # (Auto) (1.32-3.57) K/mm3 [place] # (Auto) (0.30-0.82) K/mm3 Eos # (Auto) (0.04-0.54) K/mm3 Baso # (Auto) (0.01-0.08) K/mm3 Manual Slide Review PT 10.8 (9.7-12.0) SECONDS INR 1.01 APTT 29 (22-31) SECONDS D-Dimer, Quantitative (0.19-0.50) mg/L Puncture Site ABG pH (7.35-7.45) ABG pCO2 (35.0-45.0) mmHg ABG pO2 (80.0-100.0) mmHg ABG HCO3 (22.0-26.0) meq/L ABG O2 Saturation (96.0-97.0) % ABG Base Excess (-2-2.0) Victor Hugo Test A-a Gradient mmHg O2 Delivery Device FiO2 (21.00-100.00) % Sodium 140 (136-145) mEq/L Potassium 3.9 (3.5-5.1) mEq/L Chloride 104 (98-107) mEq/L Carbon Dioxide 27 (21-32) mEq/L Anion Gap 12.9 (5-15) BUN 14 (7-18) mg/dL Creatinine 1.0 (0.7-1.3) mg/dL Est Cr Clr Drug Dosing 97.26 mL/min Estimated GFR (MDRD) > 60 (>60) mL/min BUN/Creatinine Ratio 14.0 (14-18) Glucose 82 (74-106) mg/dL Calcium 8.9 (8.5-10.1) mg/dL Phosphorus 2.3 L (2.6-4.7) mg/dL Magnesium 2.3 (1.8-2.4) mg/dl Ferritin (26-388) ng/ml Total Bilirubin 0.4 (0.2-1.0) mg/dL AST 33 (15-37) U/L ALT 68 H (16-63) U/L Alkaline Phosphatase 109 (46-116) U/L Lactate Dehydrogenase 194 (85-227) U/L Creatine Kinase 78 (39-308) U/L Troponin I < 0.017 (0.00-0.056) ng/mL Total Protein 8.1 (6.4-8.2) g/dl Albumin 3.0 L (3.4-5.0) g/dl Globulin 5.1 gm/dL Albumin/Globulin Ratio 0.6 L (1-2) OSIRIS Results - Last 24 hrs: Microbiology 01/10/20 11:00 Aerobic Blood Culture - Preliminary Blood - Venous NO GROWTH AFTER 1 DAY Anaerobic Blood Culture - Preliminary NO GROWTH AFTER 1 DAY 01/10/20 11:10 Aerobic Blood Culture - Preliminary Blood - Venous - Lab Draw NO GROWTH AFTER 1 DAY Anaerobic Blood Culture - Preliminary NO GROWTH AFTER 1 DAY - Exam General: Reports: Alert, Oriented, Cooperative, No Acute Distress HEENT: Reports: Pupils Equal, Pupils Reactive, EOMI Neck: Reports: Supple Lungs: Reports: Clear to Auscultation, Normal Respiratory Effort, Decreased Breath Sounds Cardiovascular: Reports: Regular Rate, Regular Rhythm. Denies: Murmurs, Gallops, Rubs GI/Abdominal Exam: Normal Bowel Sounds, Soft, Non-Tender, No Distention Extremities: Normal Inspection, Non-Tender, Normal Capillary Refill Skin: Reports: Warm, Dry, Intact Neurological: Reports: No New Focal Deficit Psy/Mental Status: Reports: Alert, Normal Affect, Normal Mood
[2020-01-12 08:31] VITALS: BP 120/79; PULSE 73
[2020-01-12] MEDS: Aspirin 81 MG Tab.Chew PO SCH (10:26)
[2020-01-12] MEDS: Enoxaparin 40 MG/0.4 ML Syringe SUBCUT SCH (13:54)
== END 2020-01-12 11:50 | disposition home or self-care (01) | DRG 177 ==
LOC: JD.ED 07:24 → JD.MS 11:52
PROVIDERS: ADMIT Internal Medicine; ATTEND Internal Medicine
DX: U07.1 COVID-19 (principal); J12.89 Other viral pneumonia; E87.6 Hypokalemia; E83.39 Other disorders of phosphorus metabolism; K59.00 Constipation, unspecified; I10 Essential (primary) hypertension; D47.3 Essential (hemorrhagic) thrombocythemia; E78.5 Hyperlipidemia, unspecified; E11.9 Type 2 diabetes mellitus without complications; F31.9 Bipolar disorder, unspecified; E78.00 Pure hypercholesterolemia, unspecified; K21.9 Gastro-esophageal reflux disease without esophagitis; Z88.5 Allergy status to narcotic agent; Z79.899 Other long term (current) drug therapy; Z90.49 Acquired absence of other specified parts of digestive tract
CPT/HCPCS: 36415; 36600; 71045; 71045-26; 71275; 71275-26; 80048; 80053; 80061; 82550; 82728; 82803; 83036; 83605; 83615; 83690; 83735; 84100; 84484; 85025; 85379; 85610; 85730; 86140; 87040; 87205; 93005; 93010; 94760; 96361; 96365; 96375; 99222; 99232; 99239; 99284; 99285-25; A9270-GY; J1650; J2405; J3475; J3480; J7030; J7050; J7120; Q9967

== ENCOUNTER 2020-01-14 19:21 | Emergency (ER) | payer OTHER ==
[2020-01-14 19:35] VITALS: BP 141/94; PULSE 74
[2020-01-14] MEDS ORDERED: Lidocaine 1% with EPINEPHrine 1:100,000 10 ML MDV INJECT ONE (19:38)
--- NOTE | 2020-01-14 20:00 | EDM.PDOC ---
ED HPI GENERAL MEDICAL PROBLEM - General Chief Complaint: Laceration Stated Complaint: HEAD LACERATION POSTIVE FOR COVID 1 WEEK Time Seen by Provider: 01/14/20 19:35 Source of Information: Reports: Patient History Limitations: Reports: No Limitations - History of Present Illness INITIAL COMMENTS - FREE TEXT/NARRATIVE: The patient presents with a laceration to his forehead. He was at home working on his [employer] room and a lighting fixture hit him in the forehead. He had no LOC. He tried to stop the bleeding but it would not stop. His tetanus is up to date. He is COVID 19 positive and he was just discharged. He is doing better with that. Onset: Sudden Duration: Minutes: Location: Reports: Face Quality: Reports: Sharp Severity: Mild Improves with: Reports: None Worsens with: Reports: None Associated Symptoms: Reports: No Other Symptoms - Related Data Allergies Allergy/AdvReac Type Severity Reaction Status Date / Time codeine AdvReac Disorientat Verified 01/14/20 19:35 ion Home Meds: Home Meds Simvastatin [Zocor] 40 mg PO BEDTIME 07/07/16 [History] Potassium Chloride 20 meq PO DAILY 01/12/17 [History] Aspirin 81 mg PO DAILY #30 tab 01/12/20 [Rx] QUEtiapine [SEROquel] 200 mg PO BEDTIME 14 Days tablet 01/12/20 [Rx] metFORMIN [Glucophage] 500 mg PO BIDMEALS 30 Days #30 tab 01/12/20 [Rx] Past Medical History HEENT History: Reports: Impaired Vision Other HEENT History: Wears glasses Cardiovascular History: Reports: High Cholesterol, Hypertension Other Cardiovascular History: Hypokalemia Respiratory History: Reports: None Gastrointestinal History: Reports: GERD Genitourinary History: Reports: None Musculoskeletal History: Reports: None Neurological History: Reports: Headaches, Chronic Psychiatric History: Reports: Bipolar Endocrine/Metabolic History: Reports: Other (See Below) Hematologic History: Reports: None Immunologic History: Reports: None Oncologic (Cancer) History: Reports: None Dermatologic History: Reports: None - Infectious Disease History Infectious Disease History: Reports: Novel Coronavirus - Past Surgical History Head Surgeries/Procedures: Reports: None HEENT Surgical History: Reports: Eye Surgery, Oral Surgery, Tonsillectomy Respiratory Surgical History: Reports: None GI Surgical History: Reports: Cholecystectomy Male Surgical History: Reports: None Musculoskeletal Surgical History: Reports: Arthroscopic Knee Oncologic Surgical History: Reports: None Social & Family History - Family History Family Medical History: Noncontributory - Tobacco Use Smoking Status *Q: Never Smoker - Caffeine Use Caffeine Use: Reports: Coffee - Recreational Drug Use Recreational Drug Use: No - Living Situation & Occupation Living situation: Reports: , with Spouse, with Family (Daughter) Occupation: Employed ([employer] at [employer]) ED ROS GENERAL - Review of Systems Review Of Systems: See Below Constitutional: Reports: No Symptoms HEENT: Reports: Other (laceration to forehead) Respiratory: Reports: No Symptoms Cardiovascular: Reports: No Symptoms Endocrine: Reports: No Symptoms GI/Abdominal: Reports: No Symptoms : Reports: No Symptoms Musculoskeletal: Reports: No Symptoms ED EXAM, SKIN/RASH Exam: See Below Exam Limited By: No Limitations General Appearance: Alert, No Apparent Distress Ears: Normal External Exam Nose: Normal Inspection Head: Other (4cm laceration to the mid forehead) Neck: Normal Inspection Respiratory/Chest: No Respiratory Distress ED SKIN PROCEDURES - Laceration/Wound Repair Forehead Appearance: Superficial, Irregular Skin Prep: Saline Exploration/Debridement/Repair: Wound Explored, In a Bloodless Field, Explored to Base Closed with: Wound Adhesive Lac/Wound length In cm: 4 Tetanus Status Addressed: Yes Complications: No Course - Vital Signs Last Recorded V/S: Last Vital Signs Temp 97.4 F 01/14/20 19:32 Pulse 74 01/14/20 19:32 Resp 19 01/14/20 19:32 BP 141/94 H 01/14/20 19:32 Pulse Ox 95 01/14/20 19:32 - Orders/Labs/Meds Meds: Medications Discontinued Medications Generic Name Dose Route Start Last Admin Trade Name Leilani PRN Reason Stop Dose Admin Lidocaine/Epinephrine 10 ml 01/14/20 19:38 Xylocaine 1% With Epinephrine 1:100,000 INJECT 01/14/20 19:39 ONETIME ONE - Re-Assessments/Exams Free Text/Narrative Re-Assessment/Exam: 01/14/20 19:58 I used some adhesive to close the wound. Departure - Departure Time of Disposition: 20:00 Disposition: Home, Self-Care 01 Condition: Good Clinical Impression: Forehead laceration Qualifiers: Encounter type: initial encounter Qualified Code(s): S01.81XA - Laceration without foreign body of other part of head, initial encounter - Discharge Information *PRESCRIPTION DRUG MONITORING PROGRAM REVIEWED*: Not Applicable *COPY OF PRESCRIPTION DRUG MONITORING REPORT IN PATIENT DARBY: Not Applicable Referrals: Sriram Zuñiga Jr, MD [Primary Care Provider] - Additional Instructions: The adhesive should wear off in a week. Do not put any antibiotic ointment on it. That will break down the adhesive. Look for any signs of infection such as redness, swelling, pain or discharge. If you see any of these signs please return, you may need oral antibiotics. Sepsis Event Note (ED) - Evaluation Sepsis Screening Result: No Definite Risk - Focused Exam Vital Signs: Vital Signs Temp Pulse Resp BP Pulse Ox 01/14/20 19:32 97.4 F 74 19 141/94 H 95
== END 2020-01-14 20:14 | disposition home or self-care (01) ==
LOC: JD.ED 19:21
DX: S01.81XA Laceration without foreign body of other part of head, initial encounter (principal); U07.1 COVID-19; I10 Essential (primary) hypertension; Z79.82 Long term (current) use of aspirin; Z88.5 Allergy status to narcotic agent; W22.8XXA Striking against or struck by other objects, initial encounter; Y92.009 Unspecified place in unspecified non-institutional (private) residence as the place of occurrence of the external cause
CPT/HCPCS: 12002; 12013; 99282